=== PATIENT | male | born 1940 | race Caucasian/White ===

== ENCOUNTER 2016-05-10 20:05 | Emergency (ER) | payer OTHER ==
[~2016-05-10] VITALS: Ht 177.8 cm; Wt 100.0 kg
[2016-05-10 20:07] VITALS: Ht 177.8 cm; Wt 100.0 kg
[2016-05-10] MEDS ORDERED: AGG PO (20:49)
[2016-05-10] MEDS ORDERED: ATOR-22 PO (20:49)
[2016-05-10] MEDS ORDERED: LOSA50TA6 PO (20:49)
[2016-05-10] MEDS ORDERED: ONDANSETRON INJ 2 MG/ML 2 ML VIAL IV PRN (21:00)
--- NOTE | 2016-05-10 21:07 | EMERGENCY ROOM VISIT NOTE ---
History Report prepared by Hubert: Francisca Vincent Under the Supervision of: Dr. Jacky Matson M.D. 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 The patient states that earlier today about 8 hours ACADEMIC ASSISTANT he states that lost his hearing in his left ear. He states that then 2.5 hours ago he started feeling dizziness and was then unable to walk and started to experience nausea and vomiting. 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 The patient's son states that the patient felt that the room was spinning earlier. The patient denies any recent fevers, chills or changes in vision. The patient states that his symptoms today do not feel similar to his CVA. 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 Patient denies vision changes, Review of Systems All systems have been listed, reviewed, and are negative other than those previously mentioned. Please see Additional Medical History Sheet. Past Medical & Surgical Medical Problems: (1) CVA (cerebral vascular accident) Family History Patient reports no known family medical history. Social History Smoking Status: Former Smoker Alcohol Use: none Drug Use: none Marital Status: Occupation Status: retired Current/Historical Medications Scheduled Aspirin-Dipyridamole 25MG/200MG (Aggrenox 200MG/25MG), 1 CAP PO BID Atorvastatin (Lipitor), 20 MG PO QPM Losartan Potassium (Cozaar), 50 MG PO QAM Scheduled PRN Ondansetron Hcl (Zofran), 4 MG PO Q4 PRN for Nausea Allergies Coded Allergies: No Known Allergies (Verified Allergy, Unknown, 05/07/02) Physical Exam Vital Signs Date Time Temp Pulse Resp B/P Pulse Ox O2 Delivery O2 Flow Rate FiO2 05/10/16 23:41 36.5 97 18 170/89 95 05/10/16 23:15 87 157/85 90 178/89 97 170/89 05/10/16 21:45 73 18 153/73 95 Room Air 05/10/16 21:04 Room Air 05/10/16 20:37 78 05/10/16 20:07 36.5 83 18 177/83 94 Room Air Physical Exam GENERAL: Patient awake, alert, oriented x 3. Patient follows commands. Patient does not appear toxic. Patient is adequately hydrated and well- nourished. SKIN: No erythema, pallor, cyanosis or rash HEENT: Normal head, pupils equal, reactive to light and accommodation. Ears normal. Oral cavity and posterior pharynx appear normal. Neck: Without adenopathy, no neck vein distention. LUNGS: Clear to auscultation. No wheezes, no rales, no rhonchi. HEART: No murmurs. No gallops. No rubs ABDOMEN: No masses, no rebound, no hepatomegaly or splenomegaly. Obese. EXTREMITIES: No signs of trauma. No pedal or pretibial edema. No calf or thigh tenderness. Brace on right leg. NEUROLOGIC: Weakness in right arm and right leg. Cranial nerves II-XII within normal limits. No gross motor sensory function deficits. Medical Decision & Procedures ER Provider Diagnostic Interpretation: CT results are interpretations by the radiologist and per my review. HEAD CT NONCONTRAST CT DOSE: 537.48 mGy.cm HISTORY: Mental status change sudden onset of nausea and hearing loss left TECHNIQUE: Multiaxial CT images of the head were performed without the use of intravenous contrast. Comparison: None. Findings: The paranasal sinuses and mastoid air cells are clear. 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 No evidence for acute intracranial hemorrhage. No midline shift. 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 No acute intracranial abnormality. Electronically signed by: Aly Camara M.D. 05/10/2016 9:36 PM Dictated Date/Time: 05/10/2016 9:35 PM X ray results are stated below per my interpretation and the radiologist's interpretation. CHEST ONE VIEW PORTABLE CLINICAL HISTORY: dizziness mental status change COMPARISON STUDY: No previous studies for comparison. FINDINGS: The bones soft tissues and hemidiaphragms are normal. The cardiomediastinal silhouette is normal. The lungs are clear. The pulmonary vasculature is normal. IMPRESSION: Negative chest. Electronically signed by: Aly Camara M.D. 05/10/2016 9:13 PM Dictated Date/Time: 05/10/2016 9:12 PM Laboratory Results 05/10/16 20:20 Red Blood Count 4.60, Mean Corpuscular Volume 95.9, Mean Corpuscular Hemoglobin 32.0, Mean Corpuscular Hemoglobin Concent 33.3, Mean Platelet Volume 10.3, Neutrophils (%) (Auto) 72.4, Lymphocytes (%) (Auto) 15.5, Monocytes (%) (Auto) 7.7, Eosinophils (%) (Auto) 3.4, Basophils (%) (Auto) 0.3, Neutrophils # (Auto) 9.71, Lymphocytes # (Auto) 2.08, Monocytes # (Auto) 1.03, Eosinophils # (Auto) 0.45, Basophils # (Auto) 0.04 05/10/16 20:20 Test 05/10/16 20:20 White Blood Count 13.40 K/uL (4.8-10.8) Red Blood Count 4.60 M/uL (4.7-6.1) Hemoglobin 14.7 g/dL (14.0-18.0) Hematocrit 44.1 % (42-52) Mean Corpuscular Volume 95.9 fL (80-100) Mean Corpuscular Hemoglobin 32.0 pg (25-34) Mean Corpuscular Hemoglobin Concent 33.3 g/dl (32-36) Platelet Count 303 K/uL (130-400) Mean Platelet Volume 10.3 fL (7.4-10.4) Neutrophils (%) (Auto) 72.4 % Lymphocytes (%) (Auto) 15.5 % Monocytes (%) (Auto) 7.7 % Eosinophils (%) (Auto) 3.4 % Basophils (%) (Auto) 0.3 % Neutrophils # (Auto) 9.71 K/uL (1.4-6.5) Lymphocytes # (Auto) 2.08 K/uL (1.2-3.4) Monocytes # (Auto) 1.03 K/uL (0.11-0.59) Eosinophils # (Auto) 0.45 K/uL (0-0.5) Basophils # (Auto) 0.04 K/uL (0-0.2) RDW Standard Deviation 46.0 fL (36.4-46.3) RDW Coefficient of Variation 13.2 % (11.5-14.5) Immature Granulocyte % (Auto) 0.7 % Immature Granulocyte # (Auto) 0.09 K/uL (0.00-0.02) Prothrombin Time 11.4 SECONDS (9.0-12.0) Prothromb Time International Ratio 1.1 (0.9-1.1) Activated Partial Thromboplast Time 25.4 SECONDS (21.0-31.0) Partial Thromboplastin Ratio 1.0 Anion Gap 11.0 mmol/L (3-11) Est Creatinine Clear Calc Drug Dose 64.0 ml/min Estimated GFR () 68.6 Estimated GFR (Non- 59.2 BUN/Creatinine Ratio 11.9 (10-20) Calcium Level 8.7 mg/dl (8.5-10.1) Total Bilirubin 0.2 mg/dl (0.2-1) Aspartate Amino Transf (AST/SGOT) 22 U/L (15-37) Alanine Aminotransferase (ALT/SGPT) 30 U/L (12-78) Alkaline Phosphatase 63 U/L (45-117) Total Protein 7.2 gm/dl (6.4-8.2) Albumin 3.6 gm/dl (3.4-5.0) Globulin 3.6 gm/dl (2.5-4.0) Albumin/Globulin Ratio 1.0 (0.9-2) Laboratory results as stated above per my review. Medications Administered Medications (Trade) Dose Ordered Sig/Scarlett Route Start Time Stop Time Status Last Admin Dose Admin Ondansetron HCl (Zofran Inj) 4 mg Q1HWA PRN IV 05/10/16 21:00 05/11/16 00:09 DC 05/10/16 21:02 4 MG Ondansetron HCl (ZOFRAN ODT 4MG Home Pack) 1 homepack UD ONCE PO 05/10/16 23:30 05/10/16 23:31 DC 05/10/16 23:41 1 HOMEPACK ECG Indication: other (dizziness) Rate (beats per minute): 79 Rhythm: normal sinus Findings: no acute ischemic change, no ectopy ED Course 2052: Past medical records reviewed. The patient was evaluated in room C2B. A complete history and physical examination was performed. 2100: Ordered Zofran Inj 4 mg IV. 1: I reevaluated the patient and he was no longer vomiting. 2330: Ordered Ondansetron HCl 1 homepack PO. 233: Upon reevaluation, the patient appeared to have improvement of his symptoms. I discussed today's findings with him and his family. They verbalized agreement of the treatment plan. The patient was discharged home. Medical Decision Nurses notes reviewed. Medical history sheet reviewed. Differential diagnosis includes but is not limited to: meniere's disease, benign positive vertigo, CHANDU , TIA, Vestibular neuronitis. Multiple labs were obtained. The patient is given IV Zofran and fluids which helped considerably. The patient stopped vomiting. Prior to discharge the patient was able to walk in the ED without difficulty. The patient did have some hearing loss and questionable tinnitus along with the vertigo which would be consistent with Mnire's disease. Other viral illnesses can also result in these vestibular symptoms. In the meantime, the patient will be treated with Zofran as needed and encouraged to push extra fluids. He is to follow-up with his family physician. Impression Primary Impression: Vertigo Scribe Attestation The scribe's documentation has been prepared under my direction and personally reviewed by me in its entirety. I confirm that the note above accurately reflects all work, treatment, procedures, and medical decision making performed by me. Departure Information Dispostion Home / Self-Care Prescriptions Ondansetron Hcl (ZOFRAN) 4 Mg Tab 4 MG PO Q4 Y for Nausea, #10 TAB Prov: Jacky Matson M.D. 05/10/16 Referrals Víctor Pearce M.D. (PCP) Forms HOME CARE DOCUMENTATION FORM, IMPORTANT VISIT INFORMATION Patient Instructions My [facility] Additional Instructions 1 Zofran every 4 hours as needed for nausea. Drink plenty of fluids. Follow-up with your family physician within the next 10 days. Return here sooner if your symptoms are getting worse.
[2016-05-10 21:10] LABS: BASO % 0.3 %; BASO ABS # 0.04 K/uL (0-0.2); COMPLETE YES; EOS % 3.4 %; HEMATOCRIT 44.1 % (42-52); IG% 0.7 %; LYMPH % 15.5 %; LYMPH ABS # 2.08 K/uL (1.2-3.4); MEAN CELL VOLUME 95.9 fL (80-100); MEAN CORPUSCULAR HGB CONC 33.3 g/dl (32-36); MEAN PLATELET VOLUME 10.3 fL (7.4-10.4); MONO % 7.7 %; NEUT % 72.4 %; PLATELET COUNT 303 K/uL (130-400)
--- NOTE | 2016-05-10 21:14 | DIAGNOSTIC IMAGING REPORT ---
CHEST ONE VIEW PORTABLE CLINICAL HISTORY: dizziness mental status change COMPARISON STUDY: No previous studies for comparison. FINDINGS: The bones soft tissues and hemidiaphragms are normal. The cardiomediastinal silhouette is normal. The lungs are clear. The pulmonary vasculature is normal. IMPRESSION: Negative chest. Electronically signed by: Aly Camara M.D. 05/10/2016 9:13 PM Dictated Date/Time: 05/10/2016 9:12 PM
[2016-05-10 21:17] LABS: BUN/CREATININE RATIO 11.9 (10-20); CALCIUM 8.7 mg/dl (8.5-10.1); CREATININE 1.2 mg/dl (0.60-1.40)
[2016-05-10 21:30] LABS: INR 1.1 (0.9-1.1); PROTHROMBIN TIME (PATIENT) 11.4 SECONDS (9.0-12.0)
--- NOTE | 2016-05-10 21:37 | DIAGNOSTIC IMAGING REPORT ---
HEAD CT NONCONTRAST CT DOSE: 537.48 mGy.cm HISTORY: Mental status change sudden onset of nausea and hearing loss left TECHNIQUE: Multiaxial CT images of the head were performed without the use of intravenous contrast. Comparison: None. Findings: The paranasal sinuses and mastoid air cells are clear. 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 No evidence for acute intracranial hemorrhage. No midline shift. 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 No acute intracranial abnormality. Electronically signed by: Ayl Camara M.D. 05/10/2016 9:36 PM Dictated Date/Time: 05/10/2016 9:35 PM
[2016-05-10] MEDS ORDERED: ONDA4TAB46 PO (23:29)
[2016-05-10] MEDS ORDERED: ONDANSETRON HOME PACK 4MG OD TAB PO ONE (23:30)
[2016-05-10 23:41] VITALS: BP 170/89; PULSE 97; TEMP 36.5; O2SAT 95
== END 2016-05-10 23:42 | disposition home or self-care (01) ==
LOC: C.EDB 20:07 → C.EDC 23:42
DX: R42 Dizziness and giddiness (principal); Z86.73 Personal history of transient ischemic attack (TIA), and cerebral infarction without residual deficits; H91.92 Unspecified hearing loss, left ear; Z87.891 Personal history of nicotine dependence; Z79.899 Other long term (current) drug therapy

== ENCOUNTER → 2016-10-04 | Outpatient (CLI) | payer OTHER ==
[~2016-10-04] MED LIST: AGG PO; ATOR-22 PO; LOSA50TA6 PO; ONDA4TAB46 PO
[2016-10-04 12:21] LABS: BASO % 0.4 %; BASO ABS # 0.04 K/uL (0-0.2); COMPLETE YES; HEMATOCRIT 45.2 % (42-52); IG% 0.9 %; LYMPH % 18.7 %; LYMPH ABS # 1.71 K/uL (1.2-3.4); MEAN CELL VOLUME 96.8 fL (80-100); MEAN CORPUSCULAR HGB CONC 34.1 g/dl (32-36); MEAN PLATELET VOLUME 10.1 fL (7.4-10.4); MONO % 11.6 %; NEUT % 65.4 %; PLATELET COUNT 291 K/uL (130-400); RED BLOOD COUNT 4.67 M/uL (4.7-6.1); WHITE BLOOD COUNT 9.13 K/uL (4.8-10.8)
[2016-10-04 12:40] LABS: BLOOD UREA NITROGEN 16 mg/dl (7-18); BUN/CREATININE RATIO 14.9 (10-20); CALCIUM 9.2 mg/dl (8.5-10.1); CARBON DIOXIDE 24 mmol/L (21-32); CHLORIDE 107 mmol/L (98-107); GLUCOSE 112 mg/dl (70-99); POTASSIUM 4.2 mmol/L (3.5-5.1); SODIUM 140 mmol/L (136-145)
[2016-10-04 13:04] LABS: ALKALINE PHOSPHATASE 71 U/L (45-117); ALT/SGPT 25 U/L (12-78); AST/SGOT 18 U/L (15-37); CHOLESTEROL 115 mg/dl (0-200); CHOLESTEROL/HDL RATIO 2.2; HDL CHOLESTEROL 52 mg/dl; LDL CHOLESTEROL CALCULATED 48 mg/dl; TRIGLYCERIDES 74 mg/dl (0-150); VERY LOW DENSITY LIPOPROT CALC 15 mg/dl
== END | disposition home or self-care (01) ==
LOC: C.LAB1850 09:51
PROVIDERS: ATTEND Internal Medicine Pulmonary Disease
DX: I63.9 Cerebral infarction, unspecified (principal); E78.5 Hyperlipidemia, unspecified; I65.29 Occlusion and stenosis of unspecified carotid artery; I10 Essential (primary) hypertension

== ENCOUNTER 2020-04-19 11:16 | Inpatient (IN) ==
[2020-04-19] MEDS ORDERED: SODIUM CHLORIDE 0.9% 500 ML IV ONE ×2 (11:59→14:27)
--- NOTE | 2020-04-19 12:07 | Emergency Department Note ---
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 He relates that he is being followed by his PCP for ongoing voice changes/laryngitis with cough as well as difficulty swowlling and is scheduled to see ENT. Patient is also following with ophthalmology, Dr. Shen for a L 6th cranial nerve palsy and has been wearing an eye patch for his double vision. Review of records show the patient was also seen by neurology on 04/15 where it is noted he has significant abdominal plegia of the left eye with components of 3rd and 6th nerve palsy with fixed dilated pupil. 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 Patient was ordered for additional blood work though suspicion for myasthenia and thyroid etiologies less likely. MRV and MRA performed on 04/12 demonstrated chronic occlusion of the left ICA and otherwise no acute findings. However the patient was ordered for MR of the brain with and without contrast in addition to MRI of the orbits with and without contrast to exclude occult lesion. Otherwise, the patient denies any fevers, chills, vomiting, diarrhea, urinary symptoms. He does admit to having decreased appetite and has had a "40 pound weight loss over the past month". On arrival the patient is fatigued appearing but no acute distress, afebrile with stable vital signs. He is wearing an eye patch. Underlying this is severe ptosis with severe ophthalmoplegia of the left eye dilated minimally reactive pupil though with gross vision intact. Right upper extremity with 3/5 strength with chronic contractures in setting of prior stroke and right lower extremity with 4/5 strength brace for foot drop. Patient's voice is hoarse though exhibits no symptoms of aphasia. Left upper and left lower extremity with normal strength. EKG does demonstrate right bundle branch and left anterior fascicular block which is new from 2017. Chest x-ray negative for acute cardiopulmonary process. WBC 23.2 increased from September. Platelets 413K, nonspecific. Calcium 3.1, with repletion provided. Creatinine 1.6 with BUN 40 and BUN/creatinine> 20 suggestive of prerenal etiology. LFTs unremarkable. Troponin negative/undetectable. Lactate acid 1.7, wnl. Procalcitonin 0.17, nonspecific. COVID-19 RNA, NAAT test was negative. CT of the head and CT of the head and neck was performed and again demonstrates the patient's chronic left ICA occlusion and otherwise no acute findings. I did review the patient's symptoms and presentation with his son as well as his PCP, Dr. Pearce, and we agree with plan for admission for further evaluation to clarify the etiology to the patient's progressive neurologic and functional decline decline. Patient is also agreeable with this plan. Unclear significance of leukocytosis at this time however will defer ABX for now given unclear source of infection. Case was discussed with Dr. Dubon, [facility] hospitalist, who will evaluate the patient for admission. Triage Nursing notes reviewed and agree them. Prior medical records reviewed Vital Signs: reviewed and remarkable for no significant abnormalities Differential diagnosis: Infection, dehydration, metabolic abnormality, hypo/hyperglycemia, electrolyte disturbance, anemia, hypoxia, cardiac sources, intracerebral event, toxicologic, neurologic, as well as other pathologies. ER treatment provided: See below. Diagnostics interpreted by me: ECG: Normal sinus rhythm, 84 bpm, right bundle branch block, left anterior fas cicular block, no ectopy, no overt ST elevation or depression, QTC 555, QRS 150. Cardiac Monitoring: An order for continuous cardiac monitoring was placed and demonstrated Normal sinus rhythm, 84 bpm, no ectopy. Laboratory studies: See below Imaging studies: XR chest 1V portable CLINICAL HISTORY: Chest Pain COMPARISON STUDY: Chest radiograph April 08, 2020. FINDINGS: Lung volumes are normal. Lungs are clear. There is no pneumothorax or pleural effusion. Cardiac size is normal. Mediastinal contours are normal. There is no evidence for pulmonary edema. IMPRESSION: No acute cardiopulmonary findings. -- CT head/brain wo con CLINICAL HISTORY: 79 years-old Male with dizziness, h/o cva and L CN3 palsy. Acute dizziness with history of prior stroke TECHNIQUE: Multiple axial CT images of the head were obtained without contrast. A dose lowering technique was utilized adhering to the principles of ALARA. CT DOSE: 1235.72 mGy.cm COMPARISON: CTA head neck of same day, CT head 05/10/2016, brain MRI 01/20/2020. FINDINGS: No acute intracranial hemorrhage, midline shift, intracranial mass, hydrocephalus, territorial ischemia or abnormal extra-axial collection. Age- related involutional changes. Remote infarct of the periventricular white matter, porter radiata left frontal lobe and left lentiform nucleus with ex vacuo ventriculomegaly of the frontal horn left lateral ventricle. Cerebral vascular calcifications. Increased attenuation of the left internal carotid artery appears unchanged from comparison. The calvarium is intact. The paranasal sinuses, mastoid air cells, and middle ear cavities are clear. IMPRESSION: No acute intracranial abnormality. -- CT ANGIOGRAM OF THE BRAIN ; CT ANGIOGRAM OF THE NECK CLINICAL HISTORY: Dizziness. COMPARISON STUDY: Unenhanced CT of the brain performed concurrently on 04/19/2020. MRI of the brain dated 01/20/2020. MR angiogram of the brain dated 04/12/2020. TECHNIQUE: Following the IV administration of 120 of Optiray 320, CT angiogram of the head and neck was performed from the aortic arch to the vertex. Images are reviewed in the axial, sagittal, and coronal planes. 3-D MIPS images are created and assessed. IV contrast was administered without complication. All measurements were calculated based on NASCET criteria. A dose lowering techniqu e was utilized adhering to the principles of ALARA. FINDINGS: Brain parenchyma: There is age-related involutional change noting mild subcortical and periventricular microangiopathic disease. A chronic appearing infarct is seen involving the left basal ganglia and the left porter radiata. There is associated ex vacuo dilatation of the left lateral ventricle. There is no hemorrhage, mass effect, or evidence of acute territorial ischemia by CT criteria. There is no evidence of enhancing mass lesion on the angiogram phase images. The ventricles, sulci, and cisterns are prominent secondary to inv olutional change. Gilliam-white matter differentiation is preserved. No extra-axial fluid collection is seen. Thoracic aorta: There is atherosclerotic calcification of the thoracic aorta. Visualized portions of the thoracic aorta are normal in caliber. The aortic arch demonstrates bovine variant anatomy. Right carotid arterial system: The right common carotid artery is widely patent, as are the right internal and external carotid arteries. Calcified plaque is noted in the carotid bulb. Left carotid arterial system: The left common carotid artery is widely patent, as is the left external carotid artery. Advanced atherosclerotic plaque is seen in the carotid bulb. There is complete thrombosis of the left internal carotid artery which begins 1.3 cm above the bifurcation and extends to the skull base. Vertebral arteries: The vertebral arteries are widely patent bilaterally and codominant in the neck. Subclavian arteries: Widely patent bilaterally. Intracranial vasculature: There is atherosclerotic calcification of the cavernous carotid and vertebral arteries. The right internal carotid artery is widely patent at the skull base. The anterior cerebral arteries in the right middle cerebral artery are clear. There is complete and chronic thrombosis of the left internal carotid artery to the skull base. There is reconstitution of flow within the left middle cerebral artery, likely via the anterior communicating artery. The left middle cerebral arteries patent with attenuated flow is compared to the right. The vertebrobasilar system and posterior cerebral arteries are patent. The right vertebral artery is dominant. A focal fenestration is again seen within the basilar artery on image #[id number]. No aneurysm is seen. Jugular veins: Patent bilaterally. Dural sinuses: Patent. Lung apices: Partially visualized upper lobe lung parenchyma appears clear. Secretions are noted in the trachea. Soft tissues: The visualized pharyngeal soft tissues are normal in appearance noting angiographic phase technique. The oropharyngeal airway appears widely patent. The salivary and thyroid glands are normal in appearance. No cervical lymphadenopathy is seen. Skeletal structures: The skeletal structures are osteopenic. The calvarium appears intact. The cervical spine is maintained noting multilevel spondylosis. No lytic or blastic lesion is seen. Orbits: The bony orbits are intact. Orbital contents are normal as visualized. Sinuses and mastoids: The paranasal sinuses are clear. The mastoid air cells are well pneumatized. IMPRESSION: 1. There is no hemorrhage, mass effect, or evidence of acute territorial ischemia by CT criteria noting angiographic phase technique. 2. 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 The vessel is occluded from just above the carotid bulb to the [place]. 3. There is reconstitution of flow within the left anterior and middle cerebral arteries, likely via the anterior communicating artery. There is attenuated flow within the left middle cerebral artery as compared to the right. The vessels patent and this is unchanged from the 04/12/2020 MR angiogram. 4. Otherwise unremarkable MR angiogram of the head and neck. -- Consultation(s): Case was discussed with Dr. Dubon, [facility] hospitalist, who will evaluate the patient for admission. 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 He relates that he is being followed by his PCP for ongoing voice ch anges/laryngitis with cough as well as difficulty swowlling and is scheduled to see ENT. Patient is also following with ophthalmology, Dr. Shen for a L 6th cranial nerve palsy and has been wearing an eye patch for his double vision. Review of records show the patient was also seen by neurology on 04/15 where it is noted he has significant abdominal plegia of the left eye with components of 3rd and 6th nerve palsy with fixed dilated pupil. 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 Patient was ordered for additional blood work though suspicion for myasthenia and thyroid etiologies less likely. MRV and MRA performed on 04/12 demonstrated chronic occlusion of the left ICA and otherwise no acute findings. However the patient was ordered for MR of the brain with and without contrast in addition to MRI of the orbits with and without contrast to exclude occult lesion. Otherwi se, the patient denies any fevers, chills, vomiting, diarrhea, urinary symptoms. He does admit to having decreased appetite and has had a "40 pound weight loss over the past month". ROS: See above HPI for pertinent positives & negatives. A total of 10 systems reviewed and were otherwise negative. PAST MEDICAL HISTORY:See Below PAST SURGICAL HISTORY:See Below FAMILY HISTORY:See Below SOCIAL HISTORY:See Below HOME MEDICATIONS:See Below ALLERGIES:See Below VITALS:See Below PHYSICAL EXAMINATION: GENERAL: Awake, alert, fatigue-appearing, in no distress HENT: Normocephalic, atraumatic. Oropharynx with dry mucous membranes and otherwise unremarkable. EYES: Normal conjunctiva. Sclera non-icteric. Left eye with severe ophthalmoplegia with dilated pupil, minimally reactive. Gross vision intact. NECK: Supple. No nuchal rigidity. FROM. No JVD. RESPIRATORY: Clear to auscultation. CARDIAC: Regular rate, normal rhythm. Extremities warm and well perfused. Pulses equal. ABDOMEN: Soft, non-distended. No tenderness to palpation. No rebound or guarding. No masses. RECTAL: Deferred. MUSCULOSKELETAL: Chest examination reveals no tenderness. The back is symmetric al on inspection without obvious abnormality. There is no CVA tenderness to palpation. No joint edema. LOWER EXTREMITIES: Calves are equal size bilaterally and non-tender. No edema. No discoloration. NEURO: Severe ptosis with severe ophthalmoplegia of the left eye dilated minimally reactive pupil though with gross vision intact. Right upper extremity with 3/5 strength with chronic contractures in setting of prior stroke and right lower extremity with 4/5 strength brace for foot drop. Hoarse voice. Speech is fluent. Left upper and left lower extremity with normal strength. SKIN: No rash or jaundice noted. Mohan Pichardo MD Past Med/Surg History Medical History (Updated 04/19/20 @ 22:32 by Mohan Pichardo MD) H/O Mohs micrographic surgery for skin cancer H/O multiple mohs surgery to face;Most recent was to left eyebrow/eyelid on 11/12/18 for SCC Hematuria Hypercholesteremia Hypertension Skin cancer SCC of different areas of face;Right cheek 2018, left medial eyebrow 2018, and right preauricular 2018 Stroke Surgical History H/O colonoscopy S/P tonsillectomy and adenoidectomy Family History Father , 51yo Leukemia Mother , 82yo Natural with unknown cause Sister No problems noted. Son No problems noted. Son No problems noted. Son No problems noted. Social History Smoking Status: Former smoker Cigarettes Per Day: Smoked so long ago than he can't remember much about it; Hx Alcohol Use: No Hx Substance Use: No Preferred Language: Argentine Communication Ability: Effective Visual Impairment: No Limitations Hearing Ability: [employer] Required: No Beliefs That Will Affect Care: None marital status: Current Living Situation: Family Current Living Situation Comment: Pts son lives in his basement ; grandson in house as well current occupational status: retired current occupation: Worked at [employer] Safe at Home: Yes in current or past relationships, have you been: other caffeine: Yes (2 cups/day) during the past year weight has: remained stable Assistive Devices: Cane Allergies Allergies Allergy/AdvReac Type Severity Reaction Status Date / Time No Known Drug Allergies Allergy Verified 04/19/20 13:39 Home Meds Home Medications Medication Instructions Recorded Confirmed atorvastatin 20 mg PO HS 04/19/20 04/19/20 losartan 100 mg PO QAM 04/19/20 04/19/20 Previous Rx's Medication Instructions Recorded indapamide 1.25 mg tablet 1.25 mg PO QAM #90 tab 12/14/19 aspirin 25 mg-dipyridamole 200 mg 1 cap PO BID #180 cap 02/22/20 capsule,ext.release 12 hr multiphase Results & Data (ED) Vital Signs Vital Signs - 24 hr 04/19/20 11:20 04/19/20 12:00 04/19/20 12:23 Temperature 36.5 C Temperature Source Temporal Artery Scan Pulse Rate 88 88 84 Pulse Rate from SpO2 Sensor 82 Respiratory Rate 18 22 23 Respiratory Effort / Characteristics Non-Labored Spontaneous Respiratory Depth Normal Respiratory Pattern Regular Blood Pressure 115/62 131/71 Blood Pressure Mean 79 91 Blood Pressure Position Sitting Pulse Oximetry 97 95 Oxygen Delivery Method Room Air Room Air Sepsis Recent Fever Within 48 Hours No Sepsis New/Unexplained Change in Mental Status N/A Sepsis Action Taken by Nursing No Action Required 04/19/20 12:30 04/19/20 13:00 04/19/20 13:15 Temperature Temperature Source Pulse Rate 83 81 83 Pulse Rate from SpO2 Sensor 82 77 Respiratory Rate 20 19 21 Respiratory Effort / Characteristics Respiratory Depth Respiratory Pattern Blood Pressure 138/68 143/56 H Blood Pressure Mean 91 85 Blood Pressure Position Pulse Oximetry 95 96 Oxygen Delivery Method Room Air Room Air Sepsis Recent Fever Within 48 Hours Sepsis New/Unexplained Change in Mental Status Sepsis Action Taken by Nursing 04/19/20 13:30 04/19/20 13:31 04/19/20 14:00 Temperature Temperature Source Pulse Rate 81 78 78 Pulse Rate from SpO2 Sensor 77 72 76 Respiratory Rate 17 16 14 Respiratory Effort / Characteristics Respiratory Depth Respiratory Pattern Blood Pressure 167/73 H 154/79 H Blood Pressure Mean 104 104 Blood Pressure Position Pulse Oximetry 99 98 97 Oxygen Delivery Method Sepsis Recent Fever Within 48 Hours Sepsis New/Unexplained Change in Mental Status Sepsis Action Taken by Nursing 04/19/20 14:30 04/19/20 15:00 04/19/20 15:33 Temperature Temperature Source Pulse Rate 81 85 81 Pulse Rate from SpO2 Sensor 71 Respiratory Rate 20 18 17 Respiratory Effort / Characteristics Respiratory Depth Respiratory Pattern Blood Pressure 152/90 H 148/93 H 156/60 H Blood Pressure Mean 110 111 92 Blood Pressure Position Pulse Oximetry 98 Oxygen Delivery Method Room Air Sepsis Recent Fever Within 48 Hours Sepsis New/Unexplained Change in Mental Status Sepsis Action Taken by Nursing Laboratory Data Attestation: I reviewed the patient's lab results. Result diagrams: 04/19/20 12:03 04/19/20 12:03 Lab Results 04/19/20 04/19/20 04/19/20 Range/Units 12:03 12:03 12:03 WBC 23.26 H (4.8-10.8) K/uL RBC 4.80 (4.7-6.1) M/uL Hgb 15.6 (14.0-18.0) g/dL Hct 45.0 (42-52) % MCV 93.8 (80-100) fL MCH 32.5 (25-34) pg MCHC 34.7 (32-36) g/dL RDW Std Deviation 44.1 (36.4-46.3) fL RDW Coeff of Karley 12.8 (11.5-14.5) % Plt Count 413 H (130-400) K/uL MPV 9.9 (7.4-10.4) fL Immature Gran % (Auto) 0.9 % Neut % (Auto) 85.8 % Lymph % (Auto) 9.9 % [place] % (Auto) 3.2 % Eos % (Auto) 0.1 % Baso % (Auto) 0.1 % Neut # (Auto) 19.94 H (1.4-6.5) K/uL Lymph # (Auto) 2.30 (1.2-3.4) K/uL [place] # (Auto) 0.75 H (0.11-0.59) K/uL Eos # (Auto) 0.03 (0-0.5) K/uL Baso # (Auto) 0.03 (0-0.2) K/uL Immature Gran # (Auto) 0.21 H (0.00-0.02) K/uL RBC Morphology Unremarkable ESR (0-14) mm/hr PT 12.1 H (9.0-12.0) Seconds INR 1.2 H (0.9-1.1) APTT 30.6 (21.0-31.0) Seconds PTT Ratio 1.1 Sodium 134 L (136-145) mmol/L Potassium 3.1 L (3.5-5.1) mmol/L Chloride 89 L (98-107) mmol/L Carbon Dioxide 40 H (21-32) mmol/L Anion Gap 5.0 (3-11) BUN 40 H (7-18) mg/dl Creatinine 1.68 H (0.6-1.4) mg/dl Est Cr Clr Drug Dosing 37.4 ml/min Est GFR ( Amer) 44.4 Est GFR (Non-Af Amer) 38.3 BUN/Creatinine Ratio 23.8 H (10-20) Glucose 122 H (70-99) mg/dl Lactate (0.4-2.0) mmol/L Calcium 9.9 (8.5-10.1) mg/dl Phosphorus 2.7 (2.5-4.9) mg/dl Magnesium 2.6 H (1.8-2.4) mg/dl Total Bilirubin 0.9 (0.2-1) mg/dl Direct Bilirubin 0.3 H (0-0.2) mg/dl AST 27 (15-37) U/L ALT 30 (12-78) U/L Alkaline Phosphatase 94 (45-117) U/L Total Creatine Kinase 259 (39-308) U/L Troponin I < 0.015 (0-0.045) ng/ml Total Protein 7.9 (6.4-8.2) gm/dl Albumin 3.5 (3.4-5.0) gm/dl Globulin 4.4 H (2.5-4.0) gm/dl Albumin/Globulin Ratio 0.8 L (0.9-2) Lipase 217 (73-393) U/L Procalcitonin (0-0.5) ng/ml COVID-19 Eval Order SARS-CoV-2, RNA, NAAT (NEGATIVE) 04/19/20 04/19/20 04/19/20 Range/Units 12:03 12:27 12:27 WBC (4.8-10.8) K/uL RBC (4.7-6.1) M/uL Hgb (14.0-18.0) g/dL Hct (42-52) % MCV (80-100) fL MCH (25-34) pg MCHC (32-36) g/dL RDW Std Deviation (36.4-46.3) fL RDW Coeff of Karley (11.5-14.5) % Plt Count (130-400) K/uL MPV (7.4-10.4) fL Immature Gran % (Auto) % Neut % (Auto) % Lymph % (Auto) % [place] % (Auto) % Eos % (Auto) % Baso % (Auto) % Neut # (Auto) (1.4-6.5) K/uL Lymph # (Auto) (1.2-3.4) K/uL [place] # (Auto) (0.11-0.59) K/uL Eos # (Auto) (0-0.5) K/uL Baso # (Auto) (0-0.2) K/uL Immature Gran # (Auto) (0.00-0.02) K/uL RBC Morphology ESR 28 H (0-14) mm/hr PT (9.0-12.0) Seconds INR (0.9-1.1) APTT (21.0-31.0) Seconds PTT Ratio Sodium (136-145) mmol/L Potassium (3.5-5.1) mmol/L Chloride (98-107) mmol/L Carbon Dioxide (21-32) mmol/L Anion Gap (3-11) BUN (7-18) mg/dl Creatinine (0.6-1.4) mg/dl Est Cr Clr Drug Dosing ml/min Est GFR ( Amer) Est GFR (Non-Af Amer) BUN/Creatinine Ratio (10-20) Glucose (70-99) mg/dl Lactate (0.4-2.0) mmol/L Calcium (8.5-10.1) mg/dl Phosphorus (2.5-4.9) mg/dl Magnesium (1.8-2.4) mg/dl Total Bilirubin (0.2-1) mg/dl Direct Bilirubin (0-0.2) mg/dl AST (15-37) U/L ALT (12-78) U/L Alkaline Phosphatase (45-117) U/L Total Creatine Kinase (39-308) U/L Troponin I (0-0.045) ng/ml Total Protein (6.4-8.2) gm/dl Albumin (3.4-5.0) gm/dl Globulin (2.5-4.0) gm/dl Albumin/Globulin Ratio (0.9-2) Lipase (73-393) U/L Procalcitonin (0-0.5) ng/ml COVID-19 Eval [facility] SARS-CoV-2, RNA, NAAT NEGATIVE (NEGATIVE) 04/19/20 04/19/20 Range/Units 15:14 15:14 WBC (4.8-10.8) K/uL RBC (4.7-6.1) M/uL Hgb (14.0-18.0) g/dL Hct (42-52) % MCV (80-100) fL MCH (25-34) pg MCHC (32-36) g/dL RDW Std Deviation (36.4-46.3) fL RDW Coeff of Karley (11.5-14.5) % Plt Count (130-400) K/uL MPV (7.4-10.4) fL Immature Gran % (Auto) % Neut % (Auto) % Lymph % (Auto) % [place] % (Auto) % Eos % (Auto) % Baso % (Auto) % Neut # (Auto) (1.4-6.5) K/uL Lymph # (Auto) (1.2-3.4) K/uL [place] # (Auto) (0.11-0.59) K/uL Eos # (Auto) (0-0.5) K/uL Baso # (Auto) (0-0.2) K/uL Immature Gran # (Auto) (0.00-0.02) K/uL RBC Morphology ESR (0-14) mm/hr PT (9.0-12.0) Seconds INR (0.9-1.1) APTT (21.0-31.0) Seconds PTT Ratio Sodium (136-145) mmol/L Potassium (3.5-5.1) mmol/L Chloride (98-107) mmol/L Carbon Dioxide (21-32) mmol/L Anion Gap (3-11) BUN (7-18) mg/dl Creatinine (0.6-1.4) mg/dl Est Cr Clr Drug Dosing ml/min Est GFR ( Amer) Est GFR (Non-Af Amer) BUN/Creatinine Ratio (10-20) Glucose (70-99) mg/dl Lactate 1.7 (0.4-2.0) mmol/L Calcium (8.5-10.1) mg/dl Phosphorus (2.5-4.9) mg/dl Magnesium (1.8-2.4) mg/dl Total Bilirubin (0.2-1) mg/dl Direct Bilirubin (0-0.2) mg/dl AST (15-37) U/L ALT (12-78) U/L Alkaline Phosphatase (45-117) U/L Total Creatine Kinase (39-308) U/L Troponin I (0-0.045) ng/ml Total Protein (6.4-8.2) gm/dl Albumin (3.4-5.0) gm/dl Globulin (2.5-4.0) gm/dl Albumin/Globulin Ratio (0.9-2) Lipase (73-393) U/L Procalcitonin 0.17 (0-0.5) ng/ml COVID-19 Eval Order SARS-CoV-2, RNA, NAAT (NEGATIVE) Administered Medications Dipyridamole/Aspirin (Dipyridamole/Aspirin Cap) 1 cap PO BID WILLOW Stop: 05/19/20 20:59 Last Admin: 04/19/20 20:05 Dose: 1 cap Documented by: [id number] Heparin Sodium (Porcine) (Heparin Sod 5,000 Unit/0.5 Ml Vial) 5,000 units SQ Q8 WILLOW Stop: 05/19/20 21:59 Last Admin: 04/19/20 21:39 Dose: 5,000 units Documented by: [id number] Potassium Chloride/Sodium Chloride (Normal Saline W/20 Meq Kcl) 20 meq in 1,000 mls @ 80 mls/hr IV .[id number] [facility] Stop: 05/19/20 17:59 Last Infusion: 04/19/20 21:39 Dose: 80 mls/hr Documented by: [id number] Infusion: 04/19/20 20:05 Dose: 0 mls/hr Documented by: [id number] Admin: 04/19/20 18:27 Dose: 80 mls/hr Documented by: [id number] Discontinued Medications Gadobutrol (Gadobutrol 65ml Vial) 8 ml IV ONCE ONE Stop: 04/19/20 21:13 Last Admin: 04/19/20 21:12 Dose: 8 ml Documented by: [id number] Sodium Chloride (Nss) 500 mls @ 999 mls/hr IV .Q31M ONE Stop: 04/19/20 12:29 Last Infusion: 04/19/20 12:55 Dose: 0 mls/hr Documented by: [id number] Admin: 04/19/20 12:24 Dose: 999 mls/hr Documented by: [id number] Potassium Chloride (K Conrado / Wtr) 10 meq in 100 mls @ 100 mls/hr IV Q1H WILLOW Stop: 04/19/20 16:29 Last Infusion: 04/19/20 17:39 Dose: 0 mls/hr Documented by: [id number] Admin: 04/19/20 16:39 Dose: 100 mls/hr Documented by: [id number] Infusion: 04/19/20 16:38 Dose: 0 mls/hr Documented by: [id number] Admin: 04/19/20 15:38 Dose: 100 mls/hr Documented by: [id number] Sodium Chloride (Nss) 500 mls @ 999 mls/hr IV .Q31M ONE Stop: 04/19/20 14:57 Last Infusion: 04/19/20 16:08 Dose: 0 mls/hr Documented by: [id number] Admin: 04/19/20 15:37 Dose: 999 mls/hr Documented by: [id number] Ioversol (Optiray 320 125ml) 120 ml IV ONCE ONE Stop: 04/19/20 13:20 Last Admin: 04/19/20 13:19 Dose: 120 ml Documented by: [id number] Discharge Plan Visit Data Chief Complaint: Illness Stated Complaint: DOUBLE VISION/UNABLE TO EAT ED Provider: Mohan Pichardo Discharge Problem: 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, Occlusion of carotid artery, Hoarseness or changing voice, 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
[2020-04-19 12:15] LABS: Hemoglobin 15.6 g/dL (14.0-18.0); Mean Corpuscular Hemoglobin 32.5 pg (25-34); Mean Corpuscular Hgb Conc 34.7 g/dL (32-36); Mean Corpuscular Volume 93.8 fL (80-100); Mean Platelet Volume 9.9 fL (7.4-10.4); Platelet Count 413 K/uL (130-400); RDW Coefficient of Variation 12.8 % (11.5-14.5); RDW Standard Deviation 44.1 fL (36.4-46.3); White Blood Count 23.26 K/uL (4.8-10.8)
[2020-04-19 12:27] LABS: INR 1.2 (0.9-1.1); Partial Thromboplastin Ratio 1.1; Partial Thromboplastin Time 30.6 Seconds (21.0-31.0); Prothrombin Time 12.1 Seconds (9.0-12.0)
--- NOTE | 2020-04-19 12:30 | XRay Report ---
XR chest 1V portable CLINICAL HISTORY: Chest Pain COMPARISON STUDY: Chest radiograph April 08, 2020. FINDINGS: Lung volumes are normal. Lungs are clear. There is no pneumothorax or pleural effusion. Car diac size is normal. Mediastinal contours are normal. There is no evidence for pulmonary edema. IMPRESSION: No acute cardiopulmonary findings. ACT 112: Negative or not required by law. Electronically signed by: Jesus Menchaca M.D. 04/19/2020 12:29 PM
[2020-04-19 12:32] LABS: Alanine Aminotransferase 30 U/L (12-78); Albumin Level 3.5 gm/dl (3.4-5.0); BUN Creatinine Ratio 23.8 (10-20); Bilirubin Direct 0.3 mg/dl (0-0.2); Blood Urea Nitrogen 40 mg/dl (7-18); Calcium 9.9 mg/dl (8.5-10.1); Carbon Dioxide 40 mmol/L (21-32); Chloride 89 mmol/L (98-107); Creatinine Clr Calc Pharmacy 37.4 ml/min; Est GFR (African American) 44.4; Est GFR (Non-African American) 38.3; Glucose 122 mg/dl (70-99); Lipase 217 U/L (73-393); Magnesium 2.6 mg/dl (1.8-2.4); Potassium 3.1 mmol/L (3.5-5.1); Sodium 134 mmol/L (136-145)
[2020-04-19 12:35] LABS: Albumin Globulin Ratio 0.8 (0.9-2); Alkaline Phosphatase 94 U/L (45-117); Aspartate Aminotransferase 27 U/L (15-37); Bilirubin,Total 0.9 mg/dl (0.2-1); Creatine Kinase 259 U/L (39-308); Globulin 4.4 gm/dl (2.5-4.0); Phosphorus 2.7 mg/dl (2.5-4.9); Total Protein 7.9 gm/dl (6.4-8.2)
[2020-04-19 12:39] LABS: Basophils # (auto) 0.03 K/uL (0-0.2); Basophils % (auto) 0.1 %; Eosinophils # (auto) 0.03 K/uL (0-0.5); Eosinophils % (auto) 0.1 %; Immature Granulocytes # (auto) 0.21 K/uL (0.00-0.02); Immature Granulocytes % (auto) 0.9 %; Lymphocytes % (auto) 9.9 %; Monocytes # (auto) 0.75 K/uL (0.11-0.59); Monocytes % (auto) 3.2 %; Neutrophils # (auto) 19.94 K/uL (1.4-6.5); Neutrophils % (auto) 85.8 %; RBC Morphology Unremarkable
[2020-04-19 12:50] LABS: Troponin I < 0.015 ng/ml (0-0.045)
[2020-04-19] MEDS ORDERED: OPTIRAY 320 125ml IV ONE (13:19)
--- NOTE | 2020-04-19 13:27 | CT Scan Report ---
CT head/brain wo con CLINICAL HISTORY: 79 years-old Male with dizziness, h/o cva and L CN3 palsy. Acute dizziness with hi story of prior stroke TECHNIQUE: Multiple axial CT images of the head were obtained without contrast. A dose lowering tech nique was utilized adhering to the principles of ALARA. CT DOSE: 1235.72 mGy.cm COMPARISON: CTA head neck of same day, CT head 05/10/2016, brain MRI 01/20/2020. FINDINGS: No acute intracranial hemorrhage, midline shift, intracranial mass, hydrocephalus, territorial ischem ia or abnormal extra-axial collection. Age-related involutional changes. Remote infarct of the perive ntricular white matter, porter radiata left frontal lobe and left lentiform nucleus with ex vacuo gilbert triculomegaly of the frontal horn left lateral ventricle. Cerebral vascular calcifications. Increased attenuation of the left internal carotid artery appears unchanged from comparison. The calvarium is intact. The paranasal sinuses, mastoid air cells, and middle ear cavities are clear . IMPRESSION: No acute intracranial abnormality. ACT 112: Negative or not required by law. The above report was generated using voice recognition software. It may contain grammatical, syntax o r spelling errors. Electronically signed by: Jose Phillip M.D. 04/19/2020 1:26 PM
--- NOTE | 2020-04-19 13:41 | CT Scan Report ---
CT ANGIOGRAM OF THE BRAIN ; CT ANGIOGRAM OF THE NECK CLINICAL HISTORY: Dizziness. COMPARISON STUDY: Unenhanced CT of the brain performed concurrently on 04/19/2020. MRI of the brain d ated 01/20/2020. MR angiogram of the brain dated 04/12/2020. TECHNIQUE: Following the IV administration of 120 of Optiray 320, CT angiogram of the head and neck w as performed from the aortic arch to the vertex. Images are reviewed in the axial, sagittal, and christiano nal planes. 3-D MIPS images are created and assessed. IV contrast was administered without complicati on. All measurements were calculated based on NASCET criteria. A dose lowering technique was utilize d adhering to the principles of ALARA. FINDINGS: Brain parenchyma: There is age-related involutional change noting mild subcortical and periventricula r microangiopathic disease. A chronic appearing infarct is seen involving the left basal ganglia and the left porter radiata. There is associated ex vacuo dilatation of the left lateral ventricle. There is no hemorrhage, mass effect, or evidence of acute territorial ischemia by CT criteria. There is no evidence of enhancing mass lesion on the angiogram phase images. The ventricles, sulci, and cisterns are prominent secondary to involutional change. Gilliam-white matter differentiation is preserved. No e xtra-axial fluid collection is seen. Thoracic aorta: There is atherosclerotic calcification of the thoracic aorta. Visualized portions of the thoracic aorta are normal in caliber. The aortic arch demonstrates bovine variant anatomy. Right carotid arterial system: The right common carotid artery is widely patent, as are the right int ernal and external carotid arteries. Calcified plaque is noted in the carotid bulb. Left carotid arterial system: The left common carotid artery is widely patent, as is the left externa l carotid artery. Advanced atherosclerotic plaque is seen in the carotid bulb. There is complete thro mbosis of the left internal carotid artery which begins 1.3 cm above the bifurcation and extends to t he skull base. Vertebral arteries: The vertebral arteries are widely patent bilaterally and codominant in the neck. Subclavian arteries: Widely patent bilaterally. Intracranial vasculature: There is atherosclerotic calcification of the cavernous carotid and vertebr al arteries. The right internal carotid artery is widely patent at the skull base. The anterior cereb ral arteries in the right middle cerebral artery are clear. There is complete and chronic thrombosis of the left internal carotid artery to the skull base. There is reconstitution of flow within the lef t middle cerebral artery, likely via the anterior communicating artery. The left middle cerebral woody felix patent with attenuated flow is compared to the right. The vertebrobasilar system and posterior c erebral arteries are patent. The right vertebral artery is dominant. A focal fenestration is again se en within the basilar artery on image #[id number]. No aneurysm is seen. Jugular veins: Patent bilaterally. Dural sinuses: Patent. Lung apices: Partially visualized upper lobe lung parenchyma appears clear. Secretions are noted in t he trachea. Soft tissues: The visualized pharyngeal soft tissues are normal in appearance noting angiographic pha se technique. The oropharyngeal airway appears widely patent. The salivary and thyroid glands are nor mal in appearance. No cervical lymphadenopathy is seen. Skeletal structures: The skeletal structures are osteopenic. The calvarium appears intact. The cervic al spine is maintained noting multilevel spondylosis. No lytic or blastic lesion is seen. Orbits: The bony orbits are intact. Orbital contents are normal as visualized. Sinuses and mastoids: The paranasal sinuses are clear. The mastoid air cells are well pneumatized. IMPRESSION: 1. There is no hemorrhage, mass effect, or evidence of acute territorial ischemia by CT criteria noti ng angiographic phase technique. 2. 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 The vessel is occluded f rom just above the carotid bulb to the [place]. 3. There is reconstitution of flow within the left anterior and middle cerebral arteries, likely via the anterior communicating artery. There is attenuated flow within the left middle cerebral artery as compared to the right. The vessels patent and this is unchanged from the 04/12/2020 MR angiogram. 4. Otherwise unremarkable MR angiogram of the head and neck. ACT 112: Negative or not required by law. Electronically signed by: Jose Mathews M.D. 04/19/2020 1:39 PM
[2020-04-19] MEDS: POTASSIUM CHLORIDE / WTR 10 MEQ/100 ML PLCT IV SCH ×2 (15:38→16:39)
--- NOTE | 2020-04-19 15:45 | History & Physical Report ---
Date of Service April 19, 2020 Assessment & Plan (1) Fall: Weakness, seems possible that it is due to inability to tolerate PO PT/OT pending CT head: neg for acute Current differential from neuro is possible malignancy affecting cranial nerves vs post radiation vasculopathy MRI brain, orbit pending as per neuro workup TSH, ESR, acetylcholine eval pending (2) Dysphagia: ST eval pending (3) Hypokalemia: Replaced in the ED Gentle IVF with K (4) ARF (acute renal failure): Likely related to current inability to take PO Monitor on gentle IVF (5) Leukocytosis: Uncertain etiology UA pending CXR neg for acute (6) 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 Pt states he was moving to a chair to sit down to change his clothes when he became so weak that he just could not hold himself up any longer. No LOC or pre-syncope. This has never happened prior. He states that he has been feeling progressively weak over the last few months though. He has had issues eating in that he feels like food is getting stuck. He can physically swallow, but food gets stuck so he has not been eating much. He states this happens with liquids and solids. He was able to get down 1/2 bowl of cereal with some banana yesterday, but that was his last PO. He can take his meds "but I have to work at it". Pt denies fever, SOB, chest pain, abd pain, n/v/c/d, LE pain or swelling. Pt has been working with Dr. Coughlin for an overall declining cognitive status. Imaging and labs were ordered that were to be done tomorrow. There was also discussion about an ENT c/s and swallow evals. 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 He wears a patch due to double vision related to this. Allergies Allergy/AdvReac Type Severity Reaction Status Date / Time No Known Drug Allergies Allergy Verified 04/19/20 13:39 Home Medications Medication Instructions Recorded Confirmed Type indapamide 1.25 mg tablet 1.25 mg PO QAM #90 tab 12/14/19 04/19/20 Rx aspirin 25 mg-dipyridamole 200 mg 1 cap PO BID #180 cap 02/22/20 04/19/20 Rx capsule,ext.release 12 hr multiphase atorvastatin 20 mg PO HS 04/19/20 04/19/20 History losartan 100 mg PO QAM 04/19/20 04/19/20 History Past Med/Surg History Medical History (Updated 04/19/20 @ 15:56 by Bety Dubon DO) H/O Mohs micrographic surgery for skin cancer H/O multiple mohs surgery to face;Most recent was to left eyebrow/eyelid on 11/12/18 for SCC Hematuria Hypercholesteremia Hypertension Skin cancer SCC of different areas of face;Right cheek 2018, left medial eyebrow 2018, and right preauricular 2018 Stroke Surgical History H/O colonoscopy S/P tonsillectomy and adenoidectomy Family History Father , 51yo Leukemia Mother , 82yo Natural with unknown cause Sister No problems noted. Son No problems noted. Son No problems noted. Son No problems noted. Social History Smoking Status: Former smoker Cigarettes Per Day: Smoked so long ago than he can't remember much about it; Hx Alcohol Use: No Hx Substance Use: No Preferred Language: Sri Lankan Communication Ability: Effective Visual Impairment: No Limitations Hearing Ability: Svp Monetization Required: No Beliefs That Will Affect Care: None marital status: Current Living Situation: Family Current Living Situation Comment: Pts son lives in his basement current occupational status: retired current occupation: Worked at [employer] Feels Safe at Home: Yes in current or past relationships, have you been: other caffeine: Yes (2 cups/day) during the past year weight has: remained stable Review of Systems Review of Systems: Pertinent positives and negatives reviewed in HPI--all others negative Physical Exam Constitutional: WD/WN, vitals as above Eyes: normal visual chandler by confrontation (on R, eye patch in place on L) a nd + anicteric sclerae Neck: normal visual inspection and trachea midline Respiratory: normal respiratory effort, lungs clear to auscultation Cardiovascular: Rate/Rhythm: regular rate and regular rhythm Gastrointestinal (Abdomen): Inspection/Auscultation: abdomen not distended Percussion/Palpation: abdomen soft; abdomen nontender Musculoskeletal: Head/Neck/Chest: normocephalic and head atraumatic negative for edema, peripheral pulses intact Skin: no rashes, warm and dry Neurologic: awake; not confused Speech / Cognition: normal speech Psychiatric: A+Ox3, euthymic affect Results & Data Results & Data ([facility]) Vital Signs (Past 12 Hours) Vital Signs Temp Pulse Resp BP Pulse Ox 04/19/20 15:00 85 18 148/93 H 04/19/20 14:30 81 20 152/90 H 04/19/20 14:00 78 14 154/79 H 97 04/19/20 13:31 78 16 167/73 H 98 04/19/20 13:30 81 17 99 04/19/20 13:15 83 21 04/19/20 13:00 81 19 143/56 H 96 04/19/20 12:30 83 20 138/68 95 04/19/20 12:23 84 23 131/71 95 04/19/20 12:00 88 22 04/19/20 11:20 36.5 C 88 18 115/62 97 Diagnostic Findings CXR: neg for acute CT head: neg for acute CTA h/n: Chronic L ICA thrombus ECG Additional Comments: RBBB Code Status & VTE Plan Code Status Full code VTE Prophylaxis Plan VTE Prophylaxis will be ordered: Yes PG Care Time/CCT Total # of Minutes Spent Total Time Spent with Patient: Total time spent is greater than 50% in coordination of care (as documented) at patient's floor/unit and/or counseling patient: Coding Level of Care Code 51098 Initial Inpt Care Lvl 3 Diagnoses Fall W19.XXXA Dysphagia R13.10 Hypokalemia E87.6 ARF (acute renal failure) N17.9 Leukocytosis D72.829 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
--- NOTE | 2020-04-19 16:21 | Electrocardiogram Report ---
Test Reason : Blood Pressure : / mmHG Vent. Rate : 084 BPM Atrial Rate : 084 BPM P-R Int : 170 ms QRS Dur : 150 ms QT Int : 470 ms P-R-T Axes : 062 -77 032 degrees QTc Int : 555 ms Normal sinus rhythm Right bundle branch block Left anterior fascicular block Bifascicular block Abnormal ECG When compared with ECG of 10-MAY-2016 20:19, (RBBB and left anterior fascicular block) is now Present Confirmed by Josr Arias ([id number]) on 04/19/2020 4:21:24 PM Referred By: REFERRED SELF Confirmed By:Vahe Arias
[2020-04-19] MEDS ORDERED: ONDANSETRON INJ 2 MG/ML 2 ML VIAL IV PRN (17:12)
[2020-04-19] MEDS ORDERED: MAGNESIUM HYDROXIDE SUSP 30 ML UDC PO PRN (17:12)
[2020-04-19] MEDS ORDERED: ACETAMINOPHEN 325 MG TAB PO PRN (17:12)
[2020-04-19] MEDS ORDERED: PNEUMOCOCCAL ADMINISTRATION CHARGE ONE (17:31)
[2020-04-19] MEDS ORDERED: INFLUENZA VACCINE HIGH DOSE 65+ 0.7 ML SYR IM ONE (17:31)
[2020-04-19] MEDS ORDERED: PNEUMOCOCCAL POLYSACCHARIDES 25 MCG/0.5 ML VIAL/SYR IM ONE (17:31)
[2020-04-19] MEDS ORDERED: INFLUENZA ADMINISTRATION CHARGE ONE (17:31)
[2020-04-19 17:56] LABS: Appearance Urine Clear (Clear); Bacteria Urine Automated Negative (Negative); Bilirubin Urine Negative (Negative); Blood Urine 2+ (Negative); Color Urine Yellow; Glucose Urine UA Trace (Negative); Ketones Urine Trace (Negative); Leukocyte Esterase Urine Negative (Negative); Nitrite Urine Negative (Negative); Protein Urine 1+ (Negative); Specific Gravity Urine > 1.045 (1.000-1.030); Urobilinogen Urine Negative (Negative); pH Urine 6.5 (4.5-7.5)
[2020-04-19] MEDS: NSS + 20MEQ KCL 20 MEQ/1,000 ML BAG IV SCH (18:27)
[2020-04-19] MEDS: DIPYRIDAMOLE/ASPIRIN CAP PO SCH (20:05)
[2020-04-19] MEDS ORDERED: GADOBUTROL 65ML VIAL IV ONE (21:12)
[2020-04-19] MEDS: HEPARIN SOD 5,000 UNIT/0.5 ML VIAL SQ SCH (21:39)
[2020-04-20] MEDS: HEPARIN SOD 5,000 UNIT/0.5 ML VIAL SQ SCH ×3 (06:27→20:53)
[2020-04-20 06:34] LABS: Basophils # (auto) 0.05 K/uL (0-0.2); Basophils % (auto) 0.4 %; Eosinophils # (auto) 0.14 K/uL (0-0.5); Hematocrit (blood only) 41.9 % (42-52); Hemoglobin 14.5 g/dL (14.0-18.0); Immature Granulocytes # (auto) 0.15 K/uL (0.00-0.02); Immature Granulocytes % (auto) 1.1 %; Lymphocytes # (auto) 1.67 K/uL (1.2-3.4); Lymphocytes % (auto) 11.8 %; Mean Corpuscular Hemoglobin 32.8 pg (25-34); Mean Corpuscular Hgb Conc 34.6 g/dL (32-36); Mean Corpuscular Volume 94.8 fL (80-100); Mean Platelet Volume 9.9 fL (7.4-10.4); Monocytes # (auto) 1.44 K/uL (0.11-0.59); Monocytes % (auto) 10.2 %; Neutrophils % (auto) 75.5 %; Platelet Count 394 K/uL (130-400); RDW Coefficient of Variation 13.2 % (11.5-14.5); Red Blood Count 4.42 M/uL (4.7-6.1); White Blood Count 14.15 K/uL (4.8-10.8)
[2020-04-20 07:00] LABS: BUN Creatinine Ratio 20.6 (10-20); Calcium 9.4 mg/dl (8.5-10.1); Creatinine Clr Calc Pharmacy 48.4 ml/min; Est GFR (African American) 60.6; Est GFR (Non-African American) 52.3; Potassium 2.8 mmol/L (3.5-5.1)
--- NOTE | 2020-04-20 07:03 | Magnetic Resonance Report ---
MRI OF THE BRAIN WITHOUT AND WITH IV CONTRAST CLINICAL HISTORY: declining neuro status WEAKNESS. DIZZINESS. LOSS OF BALANCE. HISTORY OF STROKE. COMPARISON STUDY: 01/20/2020, CT scan dated 04/19/2020 TECHNIQUE: MRI of the brain was performed from the vertex to the skull base utilizing various T1 and T2 weighted sequences. Following the IV administration of 8 mL of Gadavist contrast, additional enhan aleyda images were obtained. FINDINGS: Sagittal T1, axial diffusion, proton density and T2 weighted axial, coronal FLAIR, and pre and post a xial T1-weighted images were acquired. These were supplemented with post gadolinium coronal T1 weight ed images. No intra or extra-axial mass lesions are visualized. Axial diffusion-weighted images reveal no evidence of acute or subacute infarction. There is compensatory dilatation left lateral ventricle. Proton density T2-weighted and FLAIR images reveal scattered foci of increased T2 signal within the w sherron matter, likely on a small vessel basis. There is an old left basal ganglia infarct. There is absent flow void within the left internal carotid consistent with chronic occlusion There is no evidence of pathologic enhancement. IMPRESSION: 1. No acute intracranial findings 2. Old left basal ganglia infarct with compensatory dilatation left lateral ventricle 3. No evidence of acute or subacute infarction 4. No evidence of intracranial mass 5. Chronic occlusion of the left internal carotid artery ACT 112: Negative or not required by law. Electronically signed by: Dwayne Nguyen M.D. 04/20/2020 7:01 AM
[2020-04-20 07:10] LABS: Thyroid Stimulating Hormone 1.28 uIu/ml (0.300-4.500)
[2020-04-20] MEDS: NSS + 20MEQ KCL 20 MEQ/1,000 ML BAG IV SCH ×2 (08:40→20:09)
--- NOTE | 2020-04-20 08:43 | Neurology Consultation ---
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 Given history of squamous cell carcinoma with radiation treatments in 2019, I suspect recurrent malignancy at this time. Patient has also developed voice hoarseness and difficulty swallowing which may suggest laryngeal nerve dysfunction as well. Delayed onset radiation induced injury not excluded. I would recommend obtaining an up-to-date consultation with radiation oncology. Arrangements should also be made for an outpatient neurosurgical evaluation. Patient should have an evaluation with ENT and speech and swallowing which can be done during this current hospitalization. Patient should continue with Aggrenox in light of his history of stroke. Patient should continue with atorvastatin as well. History of Present Illness Reason for Consultation: Patient known to me Requesting Physician: Bety Dubon DO Attending Physician: Kyle Valles History of Present Illness The patient is a 79-year old male who I evaluated on April 15, 2020 for horizontal diplopia that began 2-1/2 to 3 months ago. Please see my outpatient neurology consultation from that date for details regarding his history of present illness. In summary, he has a profound ophthalmoplegia affecting the left eye with an associated dilated minimally reactive left pupil and severe ptosis of the left eye. I felt that he had elements of both a complete 3rd nerve palsy and 6th nerve palsy on examination although he has also developed dysarthria and dysphagia over the past month. 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 I retro-orbital or cavernous sinus process was under consideration as well. Patient's past medical history is also notable for a chronic left basal ganglia infarct with evidence of a chronically occluded left internal carotid artery related to a stroke that occurred 19 years ago. He has a chronic residual spastic right hemiparesis and has been able to walk with a cane and brace on his right lower limb. Previous neuroimaging has included a noncontrast brain MRI done this past December as well as a more recent MRA and MRV of the head. I had recommended completion of some additional testing including an up-to-date brain MRI including the orbits with gadolinium enhancement as well as some additional lab evaluation including TFTs, ESR, and acetylcholine receptor antibodies. The ESR and TSH are normal. The acetylcholine receptor antibodies are pending. MRI of the brain and orbits completed yesterday reveals abnormal enhancement in the region of the left orbital apex, cavernous sinus, and Meckel's cave suspicious for tumor infiltration. The chronic left basal ganglia infarct and chronic occlusion of the left internal carotid artery are again appreciated. These findings were observed by the interpreting radiologist, I reviewed the images as well and agree. The patient presented to the emergency department yesterday afternoon complaining of persistent weakness, dizziness, and poor p.o. intake. Allergies Allergy/AdvReac Type Severity Reaction Status Date / Time No Known Drug Allergies Allergy Verified 04/19/20 13:39 Home Medications Medication Instructions Recorded Confirmed Type indapamide 1.25 mg tablet 1.25 mg PO QAM #90 tab 12/14/19 04/19/20 Rx aspirin 25 mg-dipyridamole 200 mg 1 cap PO BID #180 cap 02/22/20 04/19/20 Rx capsule,ext.release 12 hr multiphase atorvastatin 20 mg PO HS 04/19/20 04/19/20 History losartan 100 mg PO QAM 04/19/20 04/19/20 History Patient History Medical History H/O Mohs micrographic surgery for skin cancer H/O multiple mohs surgery to face;Most recent was to left eyebrow/eyelid on 11/12/18 for SCC Hematuria Hypercholesteremia Hypertension Skin cancer SCC of different areas of face;Right cheek 2018, left medial eyebrow 2018, and right preauricular 2018 Stroke Surgical History H/O colonoscopy S/P tonsillectomy and adenoidectomy Family History Father , 51yo Leukemia Mother , 82yo Natural with unknown cause Sister No problems noted. Son No problems noted. Son No problems noted. Son No problems noted. Social History Smoking Status: Former smoker Cigarettes Per Day: Smoked so long ago than he can't remember much about it; Hx Alcohol Use: No Hx Substance Use: No Preferred Language: Chinese Communication Ability: Effective Visual Impairment: No Limitations Hearing Ability: Vp Clinical Research Required: No Beliefs That Will Affect Care: None marital status: Current Living Situation: Family Current Living Situation Comment: Pts son lives in his basement ; grandson in house as well current occupational status: retired current occupation: Worked at [employer] Feels Safe at Home: Yes in current or past relationships, have you been: other caffeine: Yes (2 cups/day) during the past year weight has: remained stable Assistive Devices: Cane Exam (Neuro) Physical Exam: I performed a detailed neurological examination including assessment of mental status, cranial nerve function, sensation, deep tendon reflexes, coordination, and motor function. Only pertinent positives are as described below. Patient has a profound left ophthalmoplegia with associated severe left upper lid ptosis. The left pupil is dilated and does not react to light. The left eye is paretic in all directions. He does perceive light and is able to count fingers with the left eye. Voice is dysarthric. This patient also has a chronic right hemiparesis, face and arm greater than leg. He was evaluated while sitting up in a bedside chair. Attention and language comprehension normal. 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
--- NOTE | 2020-04-20 08:46 | Magnetic Resonance Report ---
MRI OF THE ORBITS WITH AND WITHOUT CONTRAST CLINICAL HISTORY: Double vision. 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 COMPARISON STUDY: MRI of the brain January 20, 2020. Head CT and CTA of the head April 19, 2020. TECHNIQUE: Utilizing a 1.5 Scarlet magnet and dedicated coil, multiplanar, multi echo imaging of the or bits was performed pre and postcontrast administration with thin cut imaging. Please note that the MR I of the brain will be reported separately. Intravenous injection of 8 cc of Gadavist was uneventful. FINDINGS: Incidental note is made of an old left basal ganglia infarct with ex vacuo dilatation of th e left lateral ventricle. 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 Globes are intact. Note is made of enhancing infiltrative soft tissue within th e left orbital apex, adjacent to the left clinoid and within the left Meckel's cave as well as involv ement of the left pterygopalatine fossa with extension through skull base foramen. There may also be involvement of the left aspect of the cavernous sinus. Note is also made of mild enhancing soft tissu e within the superior medial aspect of the left orbit. This is new since MRI of January 20, 2020. The re is mild asymmetric enlargement and enhancement of the proximal portions of the left extraocular mu scles. Right orbit is unremarkable. No fluid collections are identified. Exam is mildly compromised b y motion artifact. IMPRESSION: Enhancing infiltrative soft tissue within the superomedial left orbit and left orbital apex with intr acranial involvement with extension into the left Meckel's cave, left pterygopalatine fossa, adjacent skull base foramen, possible involvement of the left aspect of the cavernous sinus and extension ankit ng the left clinoid. This is highly suggestive of recurrent tumor and may reflect perineural extensio n of tumor. Associated mild asymmetric enlargement and enhancement of the left extraocular muscles. T his finding will be called/faxed to the ordering provider at time of dictation. ACT 112: Negative or not required by law. Electronically signed by: Jesus Menchaca M.D. 04/20/2020 8:45 AM
[2020-04-20] MEDS: DIPYRIDAMOLE/ASPIRIN CAP PO SCH ×2 (08:48→20:06)
[2020-04-20] MEDS: LOSARTAN POTASSIUM 50 MG TAB PO SCH (08:49)
[2020-04-20] MEDS: INDAPAMIDE 1.25 MG TAB PO SCH (08:50)
--- NOTE | 2020-04-20 11:55 | Hospitalist Progress Note ---
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 Given history of squamous cell carcinoma with radiation treatments in 2019, this is likely to be a malignancy Patient will be having a swallow eval later today. Will await input from ENT and radiation oncology. 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 Likely due to poor intake from problem one. Admission and Anticipated Discharge Date Admission Date: April 19, 2020 Subjective Patient is a 79 yo male, reports no discomfort at this time. He reports being hoarse, but feels like he can swallow. He also does not believe that the lesion in his brain is cancer. He reports he would like to see how his swallow eval shows before choosing comfort feeds. Review of Systems Review of Systems: All systems reviewed & are unremarkable except as noted in HPI & below Physical Exam Physical Exam: Constitutional: WD/WN, vitals as above Eyes: normal visual chandler by confrontation (on R, eye patch in place on L) and + anicteric sclerae Neck: normal visual inspection and trachea midline, right large subma ndibular lymphadenopathy noted Respiratory: normal respiratory effort, lungs clear to auscultation Cardiovascular: Rate/Rhythm: regular rate and regular rhythm Gastrointestinal (Abdomen): Inspection/Auscultation: abdomen not distended Percussion/Palpation: abdomen soft; abdomen nontender Musculoskeletal: Head/Neck/Chest: normocephalic and head atraumatic negative for edema, peripheral pulses intact Skin: no rashes, warm and dry Neurologic: awake; not confused Speech / Cognition: normal speech Psychiatric: A+Ox3, euthymic affect Results & Data Results & Data ([facility]) Vital Signs (Past 12 Hours) Vital Signs Temp Pulse Resp BP Pulse Ox 04/20/20 11:31 36.3 C L 89 16 112/61 94 04/20/20 07:23 36.4 C L 80 16 164/72 H 94 04/20/20 03:05 36.7 C 71 17 120/72 97 PG Care Time/CCT Total # of Minutes Spent Total Time Spent with Patient: Total time spent is greater than 50% in coordination of care (as documented) at patient's floor/unit and/or counseling patient: Coding Level of Care Code 79504 Subseq Hosp Care Lvl 3 Diagnoses Fall W19.XXXA Encounter type: initial encounter Dysphagia R13.10 Hypokalemia E87.6 ARF (acute renal failure) N17.9 Leukocytosis D72.829 Leukocytosis type: unspecified 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
[2020-04-20] MEDS: POTASSIUM CHLORIDE / WTR 10 MEQ/100 ML PLCT IV SCH ×4 (12:44→17:25)
--- NOTE | 2020-04-20 13:44 | Fluoroscopy Report ---
FL video swallow HISTORY: Pharyngeal dysphagia. Squamous cell carcinoma. TECHNIQUE: Video fluoroscopic evaluation of swallowing was performed in the AP and lateral projection s by the speech pathology staff.. FLUOROSCOPY TIME: 0.8 minutes. NUMBER OF FLUOROSCOPY IMAGES: 0 COMPARISON STUDY: None. FINDINGS: The patient was administered nectar thick liquid with a teaspoon. There is no functional sw allow. There was premature leakage with aspiration. IMPRESSION: 1. No functional swallow. Aspiration. 2. Please see the speech pathologist report for detailed findings and recommendations. ACT 112: Negative or not required by law. Electronically signed by: Dwayne Nguyen M.D. 04/20/2020 1:43 PM
--- NOTE | 2020-04-20 14:12 | Radiation OncologyConsultation ---
Date of Consultation April 20, 2020 Assessment & Plan (1) Squamous cell skin cancer: Assessment: Mr. Gimenez is a 79-year-old gentleman who presents with a previous history of multiple skin cancers. More specifically, the patient did have squamous cell carcinoma involving the left upper eyelid. The patient did undergo Mohs resection by Dr. Miller on 11/12/2018. Pathology revealed a positive margin of the bone and no additional layers could be taken as per Dr. Miller. The patient subsequently received adjuvant radiation therapy which completed on 01/20/2019. The patient received 6600 cGy in 30 fractions. More recently, the patient has presented with left eye ophthalmoplegia and was being evaluated in the outpatient setting by Dr. Coughlin. Unfortunately, his overall performance status has declined and the patient was admitted to the hospital. The patient did have an MRI of the orbits which does reveal likely progression from his previous squamous cell carcinoma involving the left upper lobe involving left cavernous sinus, left Meckel's cave, left pterygopalatine fossa his squamous cell carcinoma of the left upper eyelid for which the patient is currently symptomatic. Neurology has seen the patient in the inpatient setting and recommended radiation oncology consultation and ENT consultation. I am now seeing the patient in consultation to discuss the role of radiation therapy. Recommendations/Plan: 1. Consider dexamethasone 4 mg p.o. twice daily to potentially help alleviate neurologic symptoms from disease involving optic visual pathway and cavernous sinus. If there is no improvement over several days, the patient may be quickly weaned off the medication. 2. Palliative care consultation. 3. I discussed palliative external beam radiation therapy over the course of 2 to 3 weeks to potentially help with symptoms. I explained to the patient and son that there is less than a 50% likelihood that he does have symptomatic improvement. I recommend obtaining a palliative care consultation prior to making a decision regarding radiation therapy. We will continue to monitor the patient's progress and are happy to get involved if the patient and family believe that they would like to pursue palliative external beam radiation therapy. 4. Medical oncology consultation in the outpatient setting if the patient and family are interested in pursuing aggressive treatment options. 5. ENT consulted by primary medical team to address hoarseness and difficulty swallowing. I did speak on the phone with the son, Marcos Gimenez ([phone]). I answered all of his questions regarding treatment options. He did express concern regarding the laryngitis and hoarse voice and I did assure him that ENT was being consulted by the primary medical team. Present on Admission?: Yes History of Present Illness Attending Physician: Kyle Valles History of Present Illness Mr. Gimenez is a 78-year-old male who has a history of skin lesions. He has had previous lesions removed from the right cheek and right preauricular region which were squamous cell carcinomas. 11/26/2017. Well differentiated squamous cell carcinoma removed from the right cheek by Dr. Dilma Miller. A Mohs procedure was performed with clear margins. 12/10/2017. Dr. Miller performed a surgical excision of a lesion in the left medial eyebrow. This was a squamous cell carcinoma. The lesion measured 1.8 x 1.3 cm with a postoperative defect of 4.0 x 3.0 cm. The margins were clear. The surgical defect was repaired with a complex linear closure. 02/06/2018. Dr. Miller performed surgical excision of a lesion in the right preauricular region. This was a well differentiated squamous cell carcinoma measuring 2.5 x 1.5 cm. Final margins were clear. 03/04/2018. Patient return for follow-up to Dr. Miller. Previously treated areas were healing well. Efudex therapy was discussed with the patient. 04/01/2018. Efudex was recommended to treat the left cheek, islam and preauricular region. 10/02/2018. The patient noted a recurrent lesion in the left medial eyelid devel oping over several months. A biopsy of this lesion was performed confirming a moderately differentiated squamous cell carcinoma. This lesion extended to the deep margin. Accession #: [id number] 11/12/2018. Patient seen by Dr. Dilma Miller for Mohs procedure as treatment for this lesion in the left medial eyebrow. The lesion measured 3.0 x 2.5 cm. Histologically the lesion was a moderately differentiated squamous cell carcinoma. The postoperative size of defect was 6.5 x 5.5 cm. Despite multiple reexcision there remained a positive margin at the bone and therefore no additional layers could be taken. Dr. Miller recommended postoperative radiation. 11/27/2018. Patient seen in radiation oncology for evaluation and discussion of the role of postoperative radiation to the surgical bed and site of positive margin. 12/10/2018 - 01/20/2019. Postoperative external beam radiation therapy to skin adjacent to left eye. 6600 cGy in 30 fractions. IMRT. VMAT. 04/15/2020. Neurology visit with Dr. Coughlin. Recommendation is to obtain MRI and ENT consultation due to left eye ophthalmoplegia as well as dysarthria and dysphagia. 04/19/2020. Patient presents to emergency room due to weakness and fall as well as palsy of the left eye. 04/19/2020. CT of head. Impression: No acute intracranial abnormality. 04/19/2020. CTA of head/neck. IMPRESSION: 1. There is no hemorrhage, mass eff ect, or evidence of acute territorial ischemia by CT criteria noting angiographic phase technique. 2. 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 The vessel is occluded from just above the carotid bulb to the cocopah of Hay. 3. There is reconstitution of flow within the left anterior and middle cerebral arteries, likely via the anterior communicating artery. There is attenuated flow within the left middle cerebral artery as compared to the right. The vessels patent and this is unchanged from the 04/12/2020 MR angiogram. 4. Otherwise unremarkable MR angiogram of the head and neck. 04/19/2020. MRI orbits. IMPRESSION: Enhancing infiltrative soft tissue within the superomedial left orbit and left orbital apex with intracranial involvement with extension into the left Meckel's cave, left pterygopalatine fossa, adjacent skull base foramen, possible involvement of the left aspect of the cavernous sinus and extension along the left clinoid. This is highly suggestive of recurrent tumor and may reflect perineural extension of tumor. Associated mild asymmetric enlargement and enhancement of the left extraocular muscles. This finding will be called/faxed to the ordering provider at time of dictation. 04/20/2020. Neurology inpatient consultation by Dr. Coughlin. Recommend radiation oncology consultation and ENT consultation. 04/20/2020. Videofluoroscopic swallow. IMPRESSION: 1. No functional swallow. Aspiration. 2. Please see the speech pathologist report for detailed findings and recommendations. Allergies Allergy/AdvReac Type Severity Reaction Status Date / Time No Known Drug Allergies Allergy Verified 04/19/20 13:39 Home Medications Medication Instructions Recorded Confirmed Type indapamide 1.25 mg tablet 1.25 mg PO QAM #90 tab 09/21/20 01/26/21 Rx aspirin 25 mg-dipyridamole 200 mg 1 cap PO BID #180 cap 02/22/20 04/19/20 Rx capsule,ext.release 12 hr multiphase atorvastatin 20 mg PO HS 04/19/20 04/19/20 History losartan 100 mg PO QAM 04/19/20 04/19/20 History Patient History Medical History (Updated 04/20/20 @ 14:06 by Gabo Neves MD) H/O Mohs micrographic surgery for skin cancer H/O multiple mohs surgery to face;Most recent was to left eyebrow/eyelid on 11/12/18 for SCC Hematuria Hypercholesteremia Hypertension Skin cancer SCC of different areas of face;Right cheek 2018, left medial eyebrow 2018, and right preauricular 2018 Stroke Surgical History H/O colonoscopy S/P tonsillectomy and adenoidectomy Family History Father , 51yo Leukemia Mother , 82yo Natural with unknown cause Sister No problems noted. Son No problems noted. Son No problems noted. Son No problems noted. Social History Smoking Status: Former smoker Cigarettes Per Day: Smoked so long ago than he can't remember much about it; Hx Alcohol Use: No Hx Substance Use: No Preferred Language: Iraqi Communication Ability: Effective Visual Impairment: No Limitations Hearing Ability: Performing Artist Required: No Beliefs That Will Affect Care: None marital status: Current Living Situation: Family Current Living Situation Comment: Pts son lives in his basement ; grandson in house as well current occupational status: retired current occupation: Worked at [employer] Feels Safe at Home: Yes in current or past relationships, have you been: other caffeine: Yes (2 cups/day) during the past year weight has: remained stable Assistive Devices: Cane Review of Systems Review of Systems: Difficulty swallowing. Hoarse voice. Unable to move and open left eye. Fatigue. Poor appetite. Otherwise unremarkable. Physical Exam Constitutional: + frail appearing and + disheveled Eyes: Left upper and lower eyelids unable to move. Injected conjunctiva
[2020-04-20] MEDS ORDERED: DEXAMETHASONE SOD INJ 10 MG/ML VIAL IV ONE (22:37)
[2020-04-20] MEDS ORDERED: DEXAMETHASONE SOD PHOSPHATE 4 MG in SYRINGE 0 ML IV ONE (23:00)
[2020-04-21] MEDS: HEPARIN SOD 5,000 UNIT/0.5 ML VIAL SQ SCH ×3 (05:54→23:32)
[2020-04-21] MEDS: NSS + 20MEQ KCL 20 MEQ/1,000 ML BAG IV SCH ×2 (09:52→21:50)
[2020-04-21] MEDS: LOSARTAN POTASSIUM 50 MG TAB PO SCH (09:53)
[2020-04-21] MEDS: INDAPAMIDE 1.25 MG TAB PO SCH (09:53)
[2020-04-21] MEDS: DIPYRIDAMOLE/ASPIRIN CAP PO SCH ×2 (09:54→20:55)
[2020-04-21] MEDS: dexAMETHasone 4 MG in SYRINGE 0 ML IV SCH ×2 (11:46→23:32)
--- NOTE | 2020-04-21 15:27 | Palliative Care Consultation ---
Date of Consultation April 21, 2020 Assessment & Plan (1) Dysphagia: Failed swallowing study. I spoke with his son, Marcos, by phone with Dr. Valles. We reviewed most recent test results and treatment options. I updated him on my discussion with is father. He is considering whether to pursue additional treatment at a tertiary care hospital vs returning home with comfort directed care. He asked about nutrition and we discussed that if they were to decide on a more aggressive approach, he would likely need PEG tube for nutrition. He would like to discuss this further with his father and has been approved for a visit tomorrow with his father to discuss further plan of care. Palliative care will follow. (2) Squamous cell skin cancer: (3) Severe protein-calorie malnutrition: (4) Palliative care encounter: History of Present Illness Reason for Consultation: goals of care Requesting Physician: Dr. Valles Attending Physician: Kyle Valles History of Present Illness 79 yo gentleman with a h/o SCC of skin at multiple sites. Most recently he had MOHS done in 2019 for lesion on left upper eyelid. He presented with progressive weakness and a fall. He has had poor appetite with difficulty swallowing. He had a swallowing study which showed aspiration. He does note that his voice is hoarse, he has problems with swallowing and coughs when he eats or drinks. He also had an MRI which shows a soft tissue mass anterolateral to the left orbit. He has had a 6th nerve palsy. He was seen by Dr. Neves with radiation oncology to consider whether he would want to pursue palliative radiation therapy. At the time of my visit, he tells me that he just wants to go home and be comfortable, that he is not interested in further treatment, however, he is deferring decisions to his son, Marcos. Allergies Allergy/AdvReac Type Severity Reaction Status Date / Time No Known Drug Allergies Allergy Verified 04/19/20 13:39 Home Medications Medication Instructions Recorded Confirmed Type indapamide 1.25 mg tablet 1.25 mg PO QAM #90 tab 12/14/19 04/19/20 Rx aspirin 25 mg-dipyridamole 200 mg 1 cap PO BID #180 cap 02/22/20 04/19/20 Rx capsule,ext.release 12 hr multiphase atorvastatin 20 mg PO HS 04/19/20 04/19/20 History losartan 100 mg PO QAM 04/19/20 04/19/20 History Patient History Medical History (Updated 04/21/20 @ 15:33 by Edelmira Rosales MD) H/O Mohs micrographic surgery for skin cancer H/O multiple mohs surgery to face;Most recent was to left eyebrow/eyelid on 11/12/18 for SCC Hematuria Hypercholesteremia Hypertension Skin cancer SCC of different areas of face;Right cheek 2018, left medial eyebrow 2018, and right preauricular 2018 Stroke Surgical History H/O colonoscopy S/P tonsillectomy and adenoidectomy Family History Father , 51yo Leukemia Mother , 82yo Natural with unknown cause Sister No problems noted. Son No problems noted. Son No problems noted. Son No problems noted. Social History Smoking Status: Former smoker Cigarettes Per Day: Smoked so long ago than he can't remember much about it; Hx Alcohol Use: No Hx Substance Use: No Preferred Language: Somali Communication Ability: Effective Visual Impairment: No Limitations Hearing Ability: [employer] Banker Required: No Beliefs That Will Affect Care: None marital status: Current Living Situation: Family Current Living Situation Comment: Pts son lives in his basement ; grandson in house as well current occupational status: retired current occupation: Worked at [employer] Feels Safe at Home: Yes in current or past relationships, have you been: other caffeine: Yes (2 cups/day) during the past year weight has: remained stable Assistive Devices: Cane Review of Systems Review of Systems: [place] Symptom Assessment Scale Pain 0/3 Nausea 0/3 Dyspnea 0/3 Anxiety 1/3 Fatigue 2/3 Palliative Performance Score 40% Physical Exam Constitutional: no acute distress Eyes: eye patch ENMT: Mouth: + dry oral mucous membranes Respiratory: normal respiratory effort; no labored breathing moist cough Gastrointestinal (Abdomen): Inspection/Auscultation: abdomen not distended Skin: Previous MOHS scarring on face Neurologic: moves all extremities Psychiatric: Orientation: alert and oriented x 3 Results & Data ([facility]) Vital Signs (Past 12 Hours) Vital Signs Temp Pulse Pulse Resp BP Pulse Ox 04/21/20 15:06 98.1 F 66 18 156/70 H 96 04/21/20 11:40 97.5 F L 113 H 18 158/78 H 91 04/21/20 09:00 86 04/21/20 07:15 97.9 F 82 18 155/72 H 95 PG Care Time/CCT Total # of Minutes Spent Total Time Spent with Patient: Total time spent is greater than 50% in coordination of care (as documented) at patient's floor/unit and/or counseling patient:Total time spent, 60 minutes with more than 50% of time spent on family communication, coordination of care and goals of care. Coding Level of Care Code 91152 Inpt Consult Level 3 Diagnoses Dysphagia R13.10 Squamous cell skin cancer C44.92 Severe protein-calorie malnutrition E43 Palliative care encounter Z51.5
--- NOTE | 2020-04-21 18:24 | Hospitalist Progress Note ---
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 Given history of squamous cell carcinoma with radiation treatments in 2019, this is likely to be a malignancy Patient failed swallow eval. ENT reports either palliative care or transfer to tertiary center if family decides on aggressive treatment. No need for ENT to come in to facility. Son will come in tomorrow to discuss with patient. appreciate input from radiation oncology. CT head: neg for acute MRI brain, orbit pending as per neuro workup TSH, ESR, acetylcholine eval pending (2) Dysphagia: swallow eval completed. will remain NPO. 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 Likely due to poor intake from problem one. Admission and Anticipated Discharge Date Admission Date: April 19, 2020 Subjective Patient has no new complaints today. He reports feeling well. When discussing goals of care, he states he wants to go home and does not appear to want aggresive treatments done. D/W son on phone with Dr. Rosales at my side on speaker. Son will come in tomorrow to discuss with father goals of care. ENT reports no beneftir from consult at this time and if he wants an intervention done, patien twould require transfer to tertiary center for surgery. Review of Systems Review of Systems: All systems reviewed & are unremarkable except as noted in HPI & below Physical Exam Physical Exam: Constitutional: WD/WN, vitals as above Eyes: normal visual chandler by confrontation (on R, eye patch in place on L) and + anicteric sclerae Neck: normal visual inspection and trachea midline, right large submandibular lymphadenopathy noted Respiratory: normal respiratory effort, lungs clear to auscultation Cardiovascular: Rate/Rhythm: regular rate and regular rhythm Gastrointestinal (Abdomen): Inspection/Auscultation: abdomen not distended Percussion/Palpation: abdomen soft; abdomen nontender Musculoskeletal: Head/Neck/Chest: normocephalic and head atraumatic negative for edema, peripheral pulses intact Skin: no rashes, warm and dry Neurologic: awake; not confused Speech / Cognition: normal speech Psychiatric: A+Ox3, euthymic affect Results & Data Results & Data ([facility]) Vital Signs (Past 12 Hours) Vital Signs Temp Pulse Pulse Resp BP Pulse Ox 04/21/20 15:31 86 04/21/20 15:06 36.7 C 66 18 156/70 H 96 04/21/20 11:40 36.4 C L 113 H 18 158/78 H 91 04/21/20 09:00 86 04/21/20 07:15 36.6 C 82 18 155/72 H 95 PG Care Time/CCT Total # of Minutes Spent Total Time Spent with Patient: Total time spent is greater than 50% in coordination of care (as documented) at patient's floor/unit and/or counseling patient: Coding Level of Care Code 26686 Subseq Hosp Care Lvl 3 Diagnoses Fall W19.XXXA Encounter type: initial encounter Dysphagia R13.10 Hypokalemia E87.6 ARF (acute renal failure) N17.9 Leukocytosis D72.829 Leukocytosis type: unspecified 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
[2020-04-22] MEDS: HEPARIN SOD 5,000 UNIT/0.5 ML VIAL SQ SCH ×3 (05:17→21:37)
[2020-04-22] MEDS: DIPYRIDAMOLE/ASPIRIN CAP PO SCH ×2 (08:53→20:01)
[2020-04-22] MEDS: LOSARTAN POTASSIUM 50 MG TAB PO SCH (08:53)
[2020-04-22] MEDS: INDAPAMIDE 1.25 MG TAB PO SCH (08:53)
[2020-04-22] MEDS: dexAMETHasone 4 MG in SYRINGE 0 ML IV SCH ×2 (08:59→19:59)
[2020-04-22] MEDS: NSS + 20MEQ KCL 20 MEQ/1,000 ML BAG IV SCH ×2 (09:03→20:49)
--- NOTE | 2020-04-22 17:00 | Palliative Care Progress Note ---
Date of Service April 22, 2020 Assessment & Plan (1) Dysphagia: NPO due to aspiration risk. We did discuss the possibility of very careful comfort feeds when he is home on hospice and the associated risk of aspiration if he desired. He and his son are aware of this. (2) Palliative care encounter: Mr. Gimenez is quite clear that he does not want further treatment or interventions and wants to go home until his . I have changed his code status to DNR to reflect his wishes per our discussion. We discussed hospice support at home. However, he would need 24 hour care and his son is working. He would be interested in hiring caregivers to cover this. Case management will be able to assist him with this. Marcos Gimenez, the son, would be contact for this. Discussed with Dr. Valles. (3) Squamous cell skin cancer: Admission and Anticipated Discharge Date Admission Date: April 19, 2020 Subjective Denies pain. He has been NPO due to dysphagia. He asked about eating and we reviewed associated risks. Son is at bedside to discuss comfort measures. Review of Systems Review of Systems: [place] Symptom Assessment Scale Pain 0/3 Dyspnea 0/3 Nausea 0/3 Fatigue 2/3 Drowsiness 0/3 Anxiety 0/3 Palliative Performance Score 50% Physical Exam Constitutional: no acute distress Eyes: left eye patch ENMT: Mouth: + dry oral mucous membranes Respiratory: moist cough Gastrointestinal (Abdomen): Inspection/Auscultation: abdomen not distended Neurologic: awake; not confused Psychiatric: Orientation: oriented x 3 Results & Data ([facility]) Vital Signs (Past 12 Hours) Vital Signs Temp Pulse Pulse Resp BP Pulse Ox 04/22/20 15:08 97.5 F L 66 20 150/68 H 94 04/22/20 11:01 97.3 F L 79 20 164/74 H 94 04/22/20 08:00 83 04/22/20 07:31 97.5 F L 84 20 147/71 H 93 PG Care Time/CCT Total # of Minutes Spent Total Time Spent with Patient: Total time spent is greater than 50% in coordination of care (as documented) at patient's floor/unit and/or counseling patient: total time spent 35 minutes with more than 50% of time spent on goals of care, plan of care, coordination of care and hospice education. Coding Level of Care Code 26739 Subseq Hosp Care Lvl 3 Diagnoses Dysphagia R13.10 Palliative care encounter Z51.5 Squamous cell skin cancer C44.92
--- NOTE | 2020-04-22 21:15 | Hospitalist Progress Note ---
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 Given history of squamous cell carcinoma with radiation treatments in 2019, this is likely to be a malignancy Patient failed swallow eval. ENT reports either palliative care or transfer to tertiary center if family decides on aggressive treatment. No need for ENT to come in to facility. Son had meeting with palliative care. Agreeing with home hospice, working on getting caregivers. appreciate input from radiation oncology. CT head: neg for acute MRI brain, orbit pending as per neuro workup TSH, ESR, acetylcholine eval pending (2) Dysphagia: swallow eval completed. will remain NPO. 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 Likely due to poor intake from problem one. Admission and Anticipated Discharge Date Admission Date: April 19, 2020 Subjective Patient has no new complaints today. He is agreeable to hospice. Review of Systems Review of Systems: All systems reviewed & are unremarkable except as noted in HPI & below Physical Exam Physical Exam: Constitutional: WD/WN, vitals as above Eyes: normal visual chandler by confrontation (on R, eye patch in place on L) and + anicteric sclerae Neck: normal visual inspection and trachea midline, right large submandibular lymphadenopathy noted Respiratory: normal respiratory effort, lungs clear to auscultation Cardiovascular: Rate/Rhythm: regular rate and regular rhythm Gastrointestinal (Abdomen): Inspection/Auscultation: abdomen not distended Percussion/Palpation: abdomen soft; abdomen nontender Musculoskeletal: Head/Neck/Chest: normocephalic and head atraumatic negative for edema, peripheral pulses intact Skin: no rashes, warm and dry Neurologic: awake; not confused Speech / Cognition: normal speech Psychiatric: A+Ox3, euthymic affect Results & Data Results & Data ([facility]) Vital Signs (Past 12 Hours) Vital Signs Temp Pulse Pulse Resp BP Pulse Ox 04/22/20 18:41 36.3 C L 87 156/71 H 91 04/22/20 17:00 81 04/22/20 15:08 36.4 C L 66 20 150/68 H 94 04/22/20 11:01 36.3 C L 79 20 164/74 H 94 PG Care Time/CCT Total # of Minutes Spent Total Time Spent with Patient: Total time spent is greater than 50% in coordination of care (as documented) at patient's floor/unit and/or counseling patient: Coding Level of Care Code 69867 Subseq Hosp Care Lvl 2 Diagnoses Fall W19.XXXA Encounter type: initial encounter Dysphagia R13.10 Hypokalemia E87.6 ARF (acute renal failure) N17.9 Leukocytosis D72.829 Leukocytosis type: unspecified 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
[2020-04-23] MEDS: HEPARIN SOD 5,000 UNIT/0.5 ML VIAL SQ SCH ×3 (05:13→21:01)
[2020-04-23] MEDS: LOSARTAN POTASSIUM 50 MG TAB PO SCH (08:59)
[2020-04-23] MEDS: DIPYRIDAMOLE/ASPIRIN CAP PO SCH ×2 (08:59→20:58)
[2020-04-23] MEDS: INDAPAMIDE 1.25 MG TAB PO SCH (08:59)
[2020-04-23] MEDS: dexAMETHasone 4 MG in SYRINGE 0 ML IV SCH ×2 (09:00→21:01)
[2020-04-23] MEDS: NSS + 20MEQ KCL 20 MEQ/1,000 ML BAG IV SCH ×2 (09:30→20:59)
--- NOTE | 2020-04-23 12:49 | XRay Report ---
XR chest 1V portable CLINICAL HISTORY: aspiration COMPARISON STUDY: 04/19/2020 FINDINGS: The heart is normal in size. There are right lower lung zone airspace opacities consistent with a pneumonitis. There are no significant pleural effusions. There is no failure. There is no pneu mothorax.[ IMPRESSION: Right lower lung zone airspace opacities consistent with a pneumonitis. ACT 112: Negative or not required by law. Electronically signed by: Dwayne Nguyen M.D. 04/23/2020 12:47 PM
[2020-04-23 19:11] LABS: Acetylcholine Recep Modulating 16; Acetylcholine Recept Blocking <15 (<15); Receptor Binding Ab <0.30 nmol/L
--- NOTE | 2020-04-23 19:58 | Hospitalist Progress Note ---
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 Given history of squamous cell carcinoma with radiation treatments in 2019, this is likely to be a malignancy Patient failed swallow eval. ENT reports either palliative care or transfer to tertiary center if family decides on aggressive treatment. No need for ENT to come in to facility. Son had meeting with palliative care. Agreeing with home hospice, working on getting caregivers. Concern giving that patient is not able to handle own secretions. May consider given atropine to help with limit secretions. Will continue with suctioning for now. appreciate input from radiation oncology. CT head: neg for acute (2) Dysphagia: swallow eval completed. will remain NPO. 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 Likely due to poor intake from problem one. Admission and Anticipated Discharge Date Admission Date: April 19, 2020 Subjective Patient reports feeling comfortable at this time. Had discussion with nurse, patient was SOB earlier and required suctioning. Once he had sputum suctioned, patient had improved. Review of Systems Review of Systems: All systems reviewed & are unremarkable except as noted in HPI & below Physical Exam Physical Exam: Constitutional: WD/WN, vitals as above Eyes: normal visual chandler by confrontation (on R, eye patch in place on L) and + anicteric sclerae Neck: normal visual inspection and trachea midline, right large submandibular lymphadenopathy noted Respiratory: normal respiratory effort, lungs clear to auscultation Cardiovascular: Rate/Rhythm: regular rate and regular rhythm Gastrointestinal (Abdomen): Inspection/Auscultation: abdomen not distended Percussion/Palpation: abdomen soft; abdomen nontender Musculoskeletal: Head/Neck/Chest: normocephalic and head atraumatic negative for edema, peripheral pulses intact Skin: no rashes, warm and dry Neurologic: awake; not confused Speech / Cognition: normal speech Psychiatric: A+Ox3, euthymic affect Results & Data Results & Data ([facility]) Vital Signs (Past 12 Hours) Vital Signs Temp Pulse Pulse Resp BP Pulse Ox 04/23/20 15:22 114 H 04/23/20 15:02 36.8 C 103 H 20 149/77 H 91 04/23/20 11:50 36.6 C 116 H 20 131/73 80 L PG Care Time/CCT Total # of Minutes Spent Total Time Spent with Patient: Total time spent is greater than 50% in coordination of care (as documented) at patient's floor/unit and/or counseling patient: Coding Level of Care Code 87551 Subseq Hosp Care Lvl 3 Diagnoses Fall W19.XXXA Encounter type: initial encounter Dysphagia R13.10 Hypokalemia E87.6 ARF (acute renal failure) N17.9 Leukocytosis D72.829 Leukocytosis type: unspecified 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
[2020-04-24] MEDS: HEPARIN SOD 5,000 UNIT/0.5 ML VIAL SQ SCH ×2 (05:02→14:00)
[2020-04-24] MEDS: LOSARTAN POTASSIUM 50 MG TAB PO SCH (09:55)
[2020-04-24] MEDS: DIPYRIDAMOLE/ASPIRIN CAP PO SCH (09:55)
[2020-04-24] MEDS: INDAPAMIDE 1.25 MG TAB PO SCH (09:55)
[2020-04-24] MEDS: dexAMETHasone 4 MG in SYRINGE 0 ML IV SCH (09:56)
[2020-04-24] MEDS: NSS + 20MEQ KCL 20 MEQ/1,000 ML BAG IV SCH (09:56)
[2020-04-24 11:38] VITALS: TEMP 97.3; O2SAT 90
[2020-04-24 12:25] VITALS: BP 164/83; PULSE 81
--- NOTE | 2020-04-24 12:59 | Discharge Summary ---
Date of Service April 24, 2020 Admission HPI Per Admitting Provider 79 y/o M who was brought to the ED after a fall earlier today. Pt states he was moving to a chair to sit down to change his clothes when he became so weak that he just could not hold himself up any longer. No LOC or pre-syncope. This has never happened prior. He states that he has been feeling progressively weak over the last few months though. He has had issues eating in that he feels like food is getting stuck. He can physically swallow, but food gets stuck so he has not been eating much. He states this happens with liquids and solids. He was able to get down 1/2 bowl of cereal with some banana yesterday, but that was his last PO. He can take his meds "but I have to work at it". Pt denies fever, SOB, chest pain, abd pain, n/v/c/d, LE pain or swelling. Pt has been working with Dr. Coughlin for an overall declining cognitive status. Imaging and labs were ordered that were to be done tomorrow. There was also discussion about an ENT c/s and swallow evals. 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 He wears a patch due to double vision related to this. Principal Diagnosis recurrent squamous cell cancer Discharge Exam Constitutional: WD/WN, vitals as above Eyes: normal visual chandler by confrontation (on R, eye patch in place on L) and + anicteric sclerae Neck: normal visual inspection and trachea midline, right large submandibular lymphadenopathy noted Respiratory: normal respiratory effort, lungs clear to auscultation Cardiovascular: Rate/Rhythm: regular rate and regular rhythm Gastrointestinal (Abdomen): Inspection/Auscultation: abdomen not distended Percussion/Palpation: abdomen soft; abdomen nontender Musculoskeletal: Head/Neck/Chest: normocephalic and head atraumatic negative for edema, peripheral pulses intact Skin: no rashes, warm and dry Neurologic: awake; not confused Speech / Cognition: normal speech Psychiatric: A+Ox3, euthymic affect Discharge Data Allergies Allergy/AdvReac Type Severity Reaction Status Date / Time No Known Drug Allergies Allergy Verified 04/19/20 13:39 Consultations 04/19/20 14:27 ED Decision to Admit Stat 04/19/20 17:12 Consult Case Management - Discharge Planning Routine Consult Neurology Routine 04/20/20 11:04 Consult Radiation Oncology Routine 04/20/20 11:07 Consult Otolaryngology (Head and Neck) Routine 04/21/20 09:22 Consult Palliative Care Routine Ordered Studies 04/19/20 11:55 CT angio head w con Stat CT angio neck with con Stat CT head/brain wo con Stat 04/19/20 17:12 MR brain wo/w con Urgent MR orbit wo/w con Urgent 04/20/20 13:30 FL video swallow Routine Hospital Course (1) Fall: 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 Given history of squamous cell carcinoma with radiation treatments in 2019, this is likely to be a malignancy Patient failed swallow eval. ENT reports either palliative care or transfer to tertiary center if family decides on aggressive treatment. No need for ENT to come in to facility. Son had meeting with palliative care. Agreeing with home hospice, working on getting caregivers. Concern giving that patient is not able to handle own secretions. will discharge with atropine/scopolamine to help with limit secretions. will discharge with home hospice: morphine/ativan appreciate input from radiation oncology. Family requested patient to be discharged home today. CT head: neg for acute (2) Dysphagia: swallow eval completed. will remain NPO. 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 Likely due to poor intake from problem one. Total Time Total Time Spent Total Time Spent (In Minutes): 32 Total Time Includes: Examination of the Patient, Discharge Planning and Medication Reconciliation Discharge Plan Discharge Items Patient Disposition: Hospice - Home Reason For Visit: FALL Discharge Diagnosis: Squamous cell cancer Activity: Resume your previous activity Non-emergency contact: Primary Care Provider Call non-emergency contact if: you have any medication questions Follow-up/Referrals: Víctor Pearce MD [Primary Care Provider] - Diet: Other - See Diet Comment Diet Comment: NPO [employer] Attending Provider Instructions: Being discharged on home hospice. Pending Studies at Discharge: No Stand-Alone Forms: My [facility] Medications and DC Order Prescriptions: New atropine 1 % drops 2 drp PO Q4H PRN (Reason: secretions) Qty: 5 RF: 0 morphine concentrate 100 mg/5 mL (20 mg/mL) solution 5 mg PO Q4H PRN (Reason: pain/ agitation) Qty: 30 RF: 0 lorazepam 2 mg/mL concentrate 0.5 mg PO Q2H PRN (Reason: agitation) Qty: 30 RF: 0 Discontinued aspirin-dipyridamole 25-200 mg capsule, ER multiphase 12 hr 1 cap PO BID Qty: 180 RF: 3 indapamide 1.25 mg tablet 1.25 mg PO QAM Qty: 90 RF: 3 atorvastatin 20 mg tablet 20 mg PO HS RF: 0 losartan 100 mg tablet 100 mg PO QAM RF: 0 Discharge Orders: Discharge Order (Routine); Ordered 04/24/20 Ordered By: Kyle Valles Admission Data Admit Date/Time: 04/19/20 15:38 Attending Provider: Kyle Valles Admit Provider: Bety Dubon Primary Care Provider: Víctor Pearce Other Providers: [facility] ; Delma Mchugh ; Stef Coughlin ; Bety Gerber ; Gabo Neves ; Eugene Valdivia ; Saleem Wolf ; Bety Nguyễn ; Bety Read ; Adonay Gimenez Yi How ; Edelmira Rosales Other Interventions: Discharge Summary Assessment (RN) Last Done: 04/24/20 12:17 Coding Level of Care Code D/C Day Management >30 mins Diagnoses Fall W19.XXXA Encounter type: initial encounter Dysphagia R13.10 Hypokalemia E87.6 ARF (acute renal failure) N17.9 Leukocytosis D72.829 Leukocytosis type: unspecified 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
[2020-04-24] MEDS ORDERED: SCOPOLAMINE 1.5 MG TDSY TD SCH (13:00)
[2020-04-24] MEDS ORDERED: CHECK SCOPOLAMINE PATCH PLACEMENT SCH (16:00)
== END 2020-04-24 14:07 | disposition hospice, home (50) | DRG 843 ==
LOC: ED 11:16 → 2N 15:38 → SUATTDRO 15:38 → 2N 16:41